=== PATIENT | female | born 1950 | race Caucasian/White ===

== ENCOUNTER → 2016-08-16 | Outpatient (CLI) | payer OTHER ==
[~2016-08-16] MED LIST: ASP81CT PO; ASP81TEC PO; ATOR40TA PO; ATOR80TA2 PO; CALC-697 PO; CALC-80 PO; CARV25TA PO; CLIN300C11 PO; CLOP75TA28; CRV25T; E400C; FENO135C PO; FENO145T; FISH1200 PO; FLAX SEED; FLAX100031 PO; FLUC200T PO; HYDR-34 PO; ISOS30TA74 PO; LISI-552; LISI1TAB PO; METFOR850T PO; METFORMIN PO; METH4TAB PO; MULT-608 PO; MULT-963 PO; MULT1TAB63; OMEG1CAP58 PO; PIOG1TAB15 PO; PIOGLITAZONE PO; RAMI10CA PO; Ranolazine PO; SIMV10TA3 PO; SITA100T PO; TRAM-42 PO; VALS320T8 PO; VITA400T7 PO; VITA800C PO; VLS80C PO; [UNRECOGNIZED DRUG - OTHER]
--- NOTE | 2016-08-16 18:55 | Diagnostic Imaging Report ---
Digital mammogram bilateral screening. This study was compared to the prior exams of 08/26/2015, 11/03/2014, 11/13/2013, and 09/04/2012. At this time, there are no current complaints. The current study was also evaluated with a Computer Aided Detection (CAD) system. FINDINGS: The fibroglandular tissue in both breasts is heterogeneously dense. This does limit the sensitivity of this exam. Overall, there does not appear to have been any significant change when compared to the prior study. No primary or secondary sign of malignancy is noted. IMPRESSION: There is no radiographic evidence for malignancy. ACR BI-RADS Category 1: Negative. Result letter will be mailed to the patient. Note: At least 10% of breast cancer is not imaged by mammography. Dictated by: Dictated on workstation # [id number]
== END ==
LOC: RAD 13:45
PROVIDERS: ATTEND Nurse Practitioner
DX: Z12.31 Encounter for screening mammogram for malignant neoplasm of breast (principal)
CPT/HCPCS: 77067

== ENCOUNTER 2016-10-25 17:57 | Emergency (ER) | payer OTHER, MEDICARE ==
[~2016-10-25] VITALS: Ht 175.3 cm; Wt 81.6 kg
--- NOTE | 2016-10-25 18:22 | ED Lower Extremity ---
General Chief Complaint: Lower Extremity Stated Complaint: L FOOT PAIN Nursing Triage Note: c/o L foot pain after kicking chair around 0830 this morning Nursing Sepsis Screen: No Definite Risk Source: patient History of Present Illness Time seen by provider: 18:00 Initial Comments C/O LEFT FOOT PAIN STATES SHE KICKED A CHAIR WITH LEFT FOOT AROUND 0830 THIS AM C/O PAIN, SWELLING, AND BRUISING TO LATERAL ASPECT OF LEFT FOOT NOW IS UNABLE TO BEAR WEIGHT ON THIS FOOT NO PARESTHESIAS OR MOTOR DEFICITS FX OF CUBOID BONE OF THIS FOOT WHEN YOUNGER--NO SURGERY PCP: DR. HANCOCK Allergies and Home Medications Allergies Coded Allergies: Penicillins (Verified Allergy, Unknown, 05/14/07) codeine (Verified Allergy, Unknown, 05/14/07) morphine (Unverified Allergy, Unknown, 10/02/13) Home Medications Aspirin 81 Mg Chew, 81 MG PO BID, (Reported) Atorvastatin Calcium 40 Mg Tablet, 40 MG PO DAILY, (Reported) Calcium Carbonate/Vitamin D3 1 Each Tablet, 1 TAB PO DAILY, (Reported) Carvedilol 25 Mg Tablet, 25 MG PO BID, (Reported) Clindamycin HCl 300 Mg Capsule, 300 MG PO QID, #40 Prescribed by: ROSANA ROSE on 03/18/162017 Clopidogrel Bisulfate 75 Mg Tablet, #90 (Reported) Fenofibrate 135 Mg Capsule.dr, 135 MG PO DAILY, (Reported) Flaxseed Oil 1,000 Mg Capsule, 1,000 MG PO DAILY, (Reported) Fluconazole 200 Mg Tablet, 200 MG PO DAILY, #10 Prescribed by: ROSANA ROSE on 03/18/162017 Isosorbide Mononitrate 30 Mg Tab.sr.24h, 30 MG PO DAILY, (Reported) Lisinopril 20 Mg Tablet, #30 (Reported) Methylprednisolone 4 Mg Tab.ds.pk, 4 MG PO UD, #1 Prescribed by: ROSANA ROSE on 03/18/162017 Multivitamin 1 Each Tablet, 1 TAB PO DAILY, (Reported) Pioglitazone Hcl/Metformin Hcl 1 Each Tablet, 1 TAB PO DAILY for 30 Days RESTART TOMORROW 10/04/13 Prescribed by: VALENTINO CHEN on 10/03/13 1015 Sitagliptin Phosphate 100 Mg Tablet, 100 MG PO DAILY, (Reported) Tramadol HCl 50 Mg Tablet, 50 MG PO Q4H, #20 Prescribed by: ROSANA ROSE on 03/18/16 2018 Tramadol HCl 50 Mg Tablet, 50 MG PO Q4H, #20 Prescribed by: ROSANA ROSE on 10/25/16 1836 Vitamin E Acid Succinate 400 Unit Tablet, 400 UNIT PO DAILY, (Reported) Constitutional: no symptoms reported Musculoskeletal: see HPI Skin: see HPI Psychiatric/Neurological: No Symptoms Reported Past Mzvxwoq-Htjspp-Nwwfmo Hx Patient Social History Alcohol Use: Denies Use Recreational Drug Use: No Smoking Status: Never a Smoker Recent Foreign Travel: No Contact w/Someone Who Travel: No Recent Infectious Disease Expo: No Immunizations Up To Date Date of Pneumonia Vaccine: Jul 08, 2007 Date of Influenza Vaccine: Mar 27, 2012 Surgeries HX Surgeries: Yes Surgeries: Adenoidectomy, Appendectomy, Cardiac, CABG, Gallbladder, Oophorectomy, Orthopedic, Tonsillectomy Respiratory Hx Respiratory Disorders: No Cardiovascular Hx Cardiac Disorders: Yes (CABG x3 (Apr 2007)) Cardiac Disorders: Coronary Artery Disease, Heart Attack, High Cholesterol, Hypertension Neurological Hx Neurological Disorders: No Reproductive System Hx Reproductive Disorders: No Sexually Transmitted Disease: No HIV/AIDS: No Female Reproductive Disorders: Ovarian Cyst BLADE CHANGER History: Menopausal Genitourinary Hx Genitourinary Disorders: No Gastrointestinal Hx Gastrointestinal Disorders: Yes (H. PYLORI) Gastrointestinal Disorders: Gastroesophageal Reflux, Hiatal Hernia, Gall Bladder Disease Musculoskeletal Hx Musculoskeletal Disorders: Yes (RIGHT KNEE) Musculoskeletal Disorders: Arthritis Endocrine Hx Endocrine Disorders: Yes Endocrine Disorders: Diabetes, Non-Insulin dep HEENT HX ENT Disorders: No Cancer Hx Cancer: Yes (skin CA on wrist 2 years ago ) Cancer: Skin Psychosocial Hx Psychiatric Problems: No Integumentary HX Skin/Integumentary Disorder: No Blood Transfusions Hx Blood Disorders: No Family Medical History Family Medial History: Chest pain 03 FATHER 09 BROTHER Congestive heart failure 03 FATHER Dementia 03 MOTHER Family history: Alzheimer's disease 03 MOTHER Family history: Cardiovascular disease 03 FATHER 09 BROTHER Family history: Diabetes mellitus 03 FATHER Family history: Hypertension 03 MOTHER Headache 03 FATHER 03 MOTHER 09 BROTHER 09 BROTHER Heart disease 03 FATHER 09 BROTHER History of - anemia 03 MOTHER Hypercholesterolemia 09 BROTHER Myocardial infarction 03 FATHER Parkinson's disease 03 MOTHER Psychotic disorder 03 MOTHER No Family History of: Abdominal aortic aneurysm Enfield's disease Alcoholism Aphasia Cancer Cancer of colon Cataract Congenital heart disease Cystic fibrosis Dysphagia Family history: Allergy Family history: Arthritis Family history: Asthma Family history: Breast disease Family history: Coronary thrombosis Family history: Gastrointestinal disease Family history: Glaucoma Family history: Osteoporosis Family history: Thyroid disorder Hearing loss Hereditary disease History of - disorder History of - respiratory disease History of drug abuse Human immunodeficiency virus (HIV) seropositivity Infertile Kidney disease Malignant neoplasm of lung Prostate cancer Seizure disorder Stroke Tuberculosis Visual impairment Physical Exam Vital Signs Vital Sign - Last 12Hours 10/25/16 18:07 Temp 98.4 Pulse 84 Resp 18 Pulse Ox 99 Capillary Refill : Less Than 3 Seconds General Appearance: WD/WN, no apparent distress Ankles: left ankle normal inspection Feet: left foot bone tenderness, left foot ecchymosis, left foot limited range of motion, left foot soft tissue tenderness, left foot swelling, left foot other (LATERAL ASPECT OF LEFT FOOT. MOTOR/SENSORY/VASCULAR INTACT) Neurologic/Tendon: normal sensation, normal motor functions, normal tendon functions Neurologic/Psychiatric: pipe buffer II-XII nml as tested, no motor/sensory deficits, alert, normal mood/affect, oriented x 3 Skin: normal color, warm/dry, ecchymosis Splinting and Joint Reduction : Immobilizers: Step Light Walker s/m/lg Progress/Results/Core Measures Results/Orders My Orders Orders - ROSANA ROSE DO [facility] (10/25/16 18:32) Vital Signs/I&O Vital Sign - Last 12Hours 10/25/16 10/25/16 18:07 18:37 Temp 98.4 98.4 Pulse 84 84 Resp 18 18 B/P (MAP) Pulse Ox 99 99 Progress Note : Progress Note PT HAS CRUTCHES AT HOME Diagnostic Imaging Comments XRAYS LEFT FOOT--NO ACUTE BONY INJURY--PER RADIOLOGIST REPORT @ 1926 Departure Impression Impression: Primary Impression: Contusion of left foot, initial encounter Disposition: HOME, SELF-CARE Condition: Stable Departure-Patient Inst. Referrals: MEENU HANCOCK DO (PCP) Primary Care Physician Patient Instructions: Contusion (DC), Going Up and Down Curbs or Stairs With a Walker or Crutches Add. Discharge Instructions: ICE, ELEVATE MUCH POSSIBLE WEAR BOOT AND USE YOUR CRUTCHES NEEDED FOR COMFORT FOLLOW UP WITH YOUR DR IN 1 WEEK IF NO BETTER IBUPROFEN OR ALEVE, AND TYLENOL NEEDED FOR PAIN All discharge instructions reviewed with patient and/or family. Voiced understanding. Scripts Tramadol HCl (Ultram) 50 Mg Tablet 50 MG PO Q4H, #20 TAB Prov: ROSANA ROSE DO 10/25/16 Images Extremities-Lower 1 - Moderate, Swelling, Tenderness ROSANA ROSE DO October 25, 2016 18:22
--- NOTE | 2016-10-25 18:26 | Diagnostic Imaging Report ---
INDICATION: Caught foot on a rocker. Pain.. TECHNIQUE: 3 views of the left foot. CORRELATION STUDY: None FINDINGS: The osseous structures of the foot are intact. Joint space is maintained. Alignment anatomic. Soft tissues appearing unremarkable. IMPRESSION: 1. Negative for acute findings of the foot. Dictated by: Dictated on workstation # [id number]
[2016-10-25] MEDS ORDERED: TRAM-42 PO (18:36)
[2016-10-25 18:37] VITALS: BP 158/62
== END 2016-10-25 18:37 | disposition home or self-care (01) ==
LOC: EDUNIT# 17:57 → ER 17:59
DX: S90.32XA Contusion of left foot, initial encounter (principal); W22.8XXA Striking against or struck by other objects, initial encounter; Y99.8 Other external cause status
CPT/HCPCS: 73630; 99285

== ENCOUNTER → 2017-06-12 | Outpatient (CLI) | payer MEDICARE, OTHER ==
--- NOTE | 2017-06-12 14:43 | Diagnostic Imaging Report ---
PROCEDURE: US Carotid Duplex Bilateral. TECHNIQUE: Multiple real-time grayscale images were obtained over the carotid arteries in various projections bilaterally. Additional duplex Doppler and color Doppler images were also obtained. INDICATION: Carotid artery disease. Hypertension. FINDINGS: Grayscale images demonstrate atherosclerotic plaque at the carotid bifurcation seen bilaterally. There is a color Doppler demonstrating patency of the common carotid, internal carotid and external carotid arteries on both sides. Antegrade flow in the vertebral arteries is seen bilaterally. The peak systolic velocities in the right ICA are 108, 87 and 92 cm/s. ICA velocities on the left are 61, 92 and 90 cm/s. ICA/CCA ratios are up to 1.1 on the right side and 1.0 on the left. IMPRESSION: There is atherosclerotic plaque seen with velocities in the carotid arteries in normal range. Estimated underlying stenosis is in the range of 0-40% bilaterally. Dictated by: Dictated on workstation # [id number]
== END ==
LOC: RAD 12:41
PROVIDERS: ATTEND Nurse Practitioner Family
DX: I65.23 Occlusion and stenosis of bilateral carotid arteries (principal); I25.10 Atherosclerotic heart disease of native coronary artery without angina pectoris; E78.4 Other hyperlipidemia; I10 Essential (primary) hypertension
CPT/HCPCS: 93880

== ENCOUNTER → 2017-08-27 | Outpatient (CLI) | payer MEDICARE, OTHER ==
--- NOTE | 2017-08-27 12:53 | Diagnostic Imaging Report ---
INDICATION: Routine screening. The current study was also evaluated with a Computer Aided Detection (CAD) system. Comparison is made with prior studies from 08/16/2016 and 08/26/2015. FINDINGS: Moderate parenchymal density and heterogeneity is identified. The parenchymal pattern is stable. No mass or malignant-appearing microcalcifications are seen. There are benign calcifications bilaterally. The axillae are unremarkable. IMPRESSION: No mammographic features suspicious for malignancy are identified. ACR BI-RADS Category 2: Benign findings. Result letter will be mailed to the patient. Note: At least 10% of breast cancer is not imaged by mammography. Dictated by: Dictated on workstation # [id number]
== END ==
LOC: RAD 11:55
PROVIDERS: ATTEND Family Medicine
DX: Z12.31 Encounter for screening mammogram for malignant neoplasm of breast (principal)
CPT/HCPCS: 77067

== ENCOUNTER → 2017-12-06 | Outpatient (CLI) | payer MEDICARE, OTHER ==
--- NOTE | 2017-12-06 14:20 | Diagnostic Imaging Report ---
PROCEDURE: MRI right joint lower extremity without contrast. TECHNIQUE: Multiplanar, multisequence non contrast-enhanced MRI of the right lower extremity was accomplished. INDICATION: Chronic right knee pain. COMPARISON: MRI from 06/14/2010. FINDINGS: No acute fracture is seen in the right knee. There is bone marrow edema at the medial femoral condyle and medial tibial plateau. There are marked osteophytes at the patellofemoral compartment, including fragmented superior marginal osteophytes and multiple button osteophytes. Extensive osteophytes are also seen in the medial and lateral compartments as well. There is a moderate right knee joint effusion. There is a large 1.3 cm ossific fragment superior to the patella which may represent a joint body or fragmented osteophyte. There is also a large joint body posterior to the posterior cruciate ligament which measures up to 1.3 cm in diameter. There is thinning, surface irregularity, and heterogeneity of the patellofemoral articular cartilage without large full thickness defect seen. The articular cartilage in the medial compartment is nearly completely absent. The articular cartilage in the lateral compartment demonstrates thinning, heterogeneity, and surface irregularity. There is extensive maceration and complex tearing throughout the medial meniscus which is extruded from the joint. The lateral meniscus demonstrates complex tearing at the posterior horn near the root, and possible oblique tear at the anterior horn. The anterior and posterior cruciate ligaments appear intact, although with mucoid degeneration. The medial collateral ligament is bowed, with low-grade partial-thickness tearing at the femoral attachment. The lateral collateral ligamentous complex appears intact. The extensor mechanism is intact. Trace fluid is seen in Finney's cyst. There is mild edema in the posterior musculature. IMPRESSION: 1. Marked tricompartmental osteoarthritis and cartilage loss in the right knee, most severe in the medial compartment. 2. Extensive complex tearing and maceration of the medial meniscus. Complex tears of the lateral meniscus as well. 3. Low-grade partial thickness tearing at the femoral attachment of the medial collateral ligament. 4. Moderate right knee joint effusion with large joint bodies. Dictated by: Dictated on workstation # [id number]
== END ==
LOC: RAD 13:08
PROVIDERS: ATTEND Family Medicine
DX: M17.11 Unilateral primary osteoarthritis, right knee (principal); S83.241A Other tear of medial meniscus, current injury, right knee, initial encounter; S83.281A Other tear of lateral meniscus, current injury, right knee, initial encounter; S83.91XA Sprain of unspecified site of right knee, initial encounter
CPT/HCPCS: 73721

== ENCOUNTER → 2018-02-08 | Outpatient (CLI) | payer MEDICARE, OTHER ==
[~2018-02-08] VITALS: Ht 175.3 cm; Wt 83.5 kg
[~2018-02-08] MED LIST changes: +ASPI-999 PO; +ATOR40TA70 PO; +CALC-654 PO; +CARV6.252 PO; +CLOP75TA69 PO; +FAMO20TA3 PO; +FENO134C PO; +FISH12002 PO; +ISOS30TA3 PO; -LISI-552; +LISI-552 PO; +MULT-35 PO; +PIOG1TAB9 PO; +SITA25TA5 PO
== END | disposition home or self-care (01) ==
LOC: PREOP 02-04 05:37
PROVIDERS: ATTEND Surgery
DX: Z01.818 Encounter for other preprocedural examination (principal)

== ENCOUNTER → 2018-04-09 | Outpatient (CLI) | payer MEDICARE, OTHER ==
[~2018-04-09] VITALS: Ht 175.3 cm; Wt 83.0 kg
[~2018-04-09] MED LIST changes: +CATHETER FLUSH 10 ML SYR IV PRN; +REGADENOSON 0.4 MG/5 ML SYR (LEXISCAN) IV ONE
[2018-04-09 09:27] VITALS: BP 225/111
[2018-04-09 09:32] VITALS: BP 197/107
--- NOTE | 2018-04-09 19:12 | STRESS TEST ---
DATE OF SERVICE: 04/09/2018 TITLE OF THE EXAM: Resting and post regadenoson technetium-99m Tetrofosmin SPECT CT imaging. ORDERING PHYSICIAN: MESERET Zhao. PRIMARY PHYSICIAN: Tonya Long DO. OTHER PHYSICIAN: Nahun Gaines MD, MA, FACP, FACC. CLINICAL DIAGNOSES: Coronary artery disease. Baseline images were carried out after injection of 10.43 mCi technetium-99m Tetrofosmin. This was followed by 0.4 mg regadenoson and 28.5 mCi of technetium-99m Tetrofosmin for stress imaging. The electrocardiogram showed sinus rhythm with incomplete right bundle branch block and nonspecific ST abnormality. The ST segment abnormality worsened somewhat with the regadenoson infusion and then gradually returned towards baseline. The patient reported nervousness and flushing following regadenoson infusion, which resolved in a few minutes. Review of images at rest and following stress indicates a small basal inferior perfusion defect which appears transient. Gated images show a mild posterobasal hypokinesis. Left ventricular ejection fraction is calculated to be 62%. Left ventricular end diastolic volume is 61 mL. TID is absent (1.04). CONCLUSIONS: 1. The study is indicative of a small amount of some basal inferior ischemia. 2. Mild basal inferior hypokinesis. 3. Well preserved global left ventricular systolic function with ejection fraction approximately 62%. Job ID: [id number] DocumentID: [id number] Dictated Date: 04/09/2018 12:46:40 Contact Worker Date: 04/09/2018 16:46:54 Dictated By: NAHUN GAINES MD, BRITTA, FACP, FACC, [facility]
== END ==
LOC: CARD 07:27
PROVIDERS: ATTEND Nurse Practitioner Family
DX: I25.10 Atherosclerotic heart disease of native coronary artery without angina pectoris (principal); I10 Essential (primary) hypertension; E78.5 Hyperlipidemia, unspecified
CPT/HCPCS: 78452; 93017

== ENCOUNTER → 2018-09-30 | Outpatient (CLI) | payer MEDICARE, OTHER ==
[~2018-09-30] MED LIST changes: -CATHETER FLUSH 10 ML SYR IV PRN; -REGADENOSON 0.4 MG/5 ML SYR (LEXISCAN) IV ONE
--- NOTE | 2018-10-01 11:32 | Diagnostic Imaging Report ---
EXAMINATION: Digital mammogram bilateral screening with 3D tomosynthesis and cad. This study was compared to prior exams of 08/27/2017, 08/16/2016 and 08/26/2015. At this time there are no current complaints. The current study was also evaluated with a Computer Aided Detection (CAD) system. FINDINGS: The fibroglandular tissue in both breasts is heterogeneously dense. This does limit the sensitivity of this exam. Overall, there does not appear to have been any significant change when compared to the prior study. No primary or secondary sign of malignancy is noted. IMPRESSION: There is no radiographic evidence for malignancy. ACR BI-RADS Category 1: Negative. Result letter will be mailed to the patient. Note: At least 10% of breast cancer is not imaged by mammography. Dictated by: Dictated on workstation # [id number]
== END ==
LOC: RAD 10:21
PROVIDERS: ATTEND Family Medicine
DX: Z12.31 Encounter for screening mammogram for malignant neoplasm of breast (principal)
CPT/HCPCS: 77067

== ENCOUNTER → 2019-06-09 | Outpatient (CLI) | payer MEDICARE, OTHER | LOC: CARD 08:37 | PROVIDERS: ATTEND Internal Medicine Cardiovascular Disease | DX: I34.0 Nonrheumatic mitral (valve) insufficiency (principal); I25.10 Atherosclerotic heart disease of native coronary artery without angina pectoris; E11.9 Type 2 diabetes mellitus without complications; I10 Essential (primary) hypertension; E78.5 Hyperlipidemia, unspecified; I65.23 Occlusion and stenosis of bilateral carotid arteries | CPT/HCPCS: 93306 ==

== ENCOUNTER → 2019-11-03 | Outpatient (CLI) | payer MEDICARE, OTHER ==
--- NOTE | 2019-11-03 16:23 | Diagnostic Imaging Report ---
INDICATION: Routine screening. COMPARISON: 09/30/2018 and 08/27/2017. TECHNIQUE: 2D and 3D bilateral screening mammography was performed with CAD. FINDINGS: Both breasts remain heterogeneously dense, limiting the sensitivity of mammography. No mass or malignant appearing microcalcifications are seen. There are benign calcifications bilaterally. The axillae are unremarkable. IMPRESSION: No mammographic features suspicious for malignancy are identified. ACR BI-RADS Category 2: Benign findings. Result letter will be mailed to the patient. Note: At least 10% of breast cancer is not imaged by mammography. Dictated by: Dictated on workstation # [id number]
== END ==
LOC: RAD 13:02
PROVIDERS: ATTEND Family Medicine
DX: Z12.31 Encounter for screening mammogram for malignant neoplasm of breast (principal)
CPT/HCPCS: 77063; 77067

== ENCOUNTER → 2019-12-08 | Outpatient (CLI) | payer MEDICARE, OTHER ==
[~2019-12-08] MED LIST changes: +CATHETER FLUSH 10 ML SYR IV PRN; +HOLD METFORMIN - RECEIVED CONTRAST 20 ML VIAL IV SCH; +IOHEXOL 350 MG/ML 100 ML (OMNIPAQUE 350) VIAL IV ONE; +NS 100 ML (IVPB) BAG IV ONE
--- NOTE | 2019-12-08 08:38 | Diagnostic Imaging Report ---
PROCEDURE: CT angiography of the head and CT angiography of the neck with and without contrast. TECHNIQUE: Contiguous noncontrast images were obtained from the skull base through the vertex. After intravenous contrast administration, helical CT angiography of the neck was performed. Source data was reformatted into 3D MIP projections. Delayed post contrast acquisition was also obtained. Auto Exposure Controls were utilized during the CT exam to meet ALARA standards for radiation dose reduction. INDICATION: Vertigo, nausea. COMPARISON: No previous for direct comparison. The patient had a carotid Doppler performed on 06/12/2017. FINDINGS: CT HEAD: The precontrast and delayed post contrast enhanced head CT reveals no hemorrhage, hydrocephalus, edema, mass, mass effect, or findings of an elevation of the intracerebral pressures. There is no abnormal parenchymal or meningeal enhancement following contrast. CT NECK: The aortic arch and branching pattern of the great vessels appear unremarkable. The cervical vertebral arteries are patent and codominant. The bilateral common carotids are widely patent. There are calcified plaques at the carotid bulbs bilaterally which do not result in significant luminal narrowing. There is calcified plaque in the proximal left cervical internal carotid with a 20% or less stenosis and not hemodynamically significant. CTA HEAD: There are intracranial carotid calcified plaques eccentrically and non-stenosing bilaterally. The intradural vertebral arteries and the basilar are widely patent. The bilateral DEATH CLAIM CLERK segments are widely patent. The A1 segments, ACOM, and the paired anterior cerebral arteries are widely patent. The bilateral middle cerebral arterial segments and primary branches are widely patent. No filling defect. IMPRESSION: There are mild cervical intracranial calcified atherosclerotic plaques which do not result in a hemodynamically significant stenosis. Widely patent cervical and intracranial vertebral basilar system. Dictated by: Dictated on workstation # [id number]
== END ==
LOC: RAD 07:18
PROVIDERS: ATTEND Family Medicine
DX: I65.29 Occlusion and stenosis of unspecified carotid artery (principal); R42 Dizziness and giddiness
CPT/HCPCS: 70496; 70498

== ENCOUNTER → 2020-05-13 | Outpatient (CLI) | payer MEDICARE, OTHER ==
[~2020-05-13] MED LIST changes: -CATHETER FLUSH 10 ML SYR IV PRN; -HOLD METFORMIN - RECEIVED CONTRAST 20 ML VIAL IV SCH; -IOHEXOL 350 MG/ML 100 ML (OMNIPAQUE 350) VIAL IV ONE; -NS 100 ML (IVPB) BAG IV ONE
== END ==
LOC: CARD 09:30
PROVIDERS: ATTEND Nurse Practitioner Family
DX: I25.10 Atherosclerotic heart disease of native coronary artery without angina pectoris (principal); I08.0 Rheumatic disorders of both mitral and aortic valves
CPT/HCPCS: 93306

== ENCOUNTER → 2020-05-14 | Outpatient (CLI) | payer MEDICARE, OTHER ==
[~2020-05-14] MED LIST changes: +REGADENOSON 0.4 MG/5 ML SYR (LEXISCAN) IV ONE
[2020-05-14] MEDS: CATHETER FLUSH 10 ML SYR IV PRN ×2 (07:24→09:12)
[2020-05-14 09:11] VITALS: BP 188/98
--- NOTE | 2020-05-14 16:19 | STRESS TEST ---
DATE OF SERVICE: 05/14/2020 RESTING AND POST REGADENOSON TECHNETIUM-99M TETROFOSMIN SPECT CT IMAGING ORDERING PHYSICIAN: Marla Perez APRN PRIMARY PHYSICIAN: Dr. Long. OTHER PHYSICIAN: Dr. Adler. CLINICAL DIAGNOSES: Coronary artery disease. Baseline images were carried out after injection of 10.95 mCi of technetium-99m Tetrofosmin. This was followed by 0.4 mg regadenoson and 29.2 mCi of technetium-99m Tetrofosmin for stress imaging. The electrocardiogram showed sinus rhythm at baseline. There was nonspecific ST abnormality at baseline, which became somewhat more pronounced with the regadenoson infusion and then returned towards baseline. The patient tolerated the procedure well and did not report any significant symptoms. Review of images at rest and following stress shows considerable gut uptake in the gut, especially during stress images. This makes the study difficult to interpret. The overall impression is that there is probably a small amount of basal inferior ischemia. Gated images show normal global left ventricular systolic function with normal regional wall motion. Left ventricular ejection fraction is calculated to be 58%. Left ventricular end diastolic volume is 60 mL. TID is absent (1.01). CONCLUSIONS: 1. This study is suggestive of a small amount of basal inferior ischemia. 2. Normal regional wall motion. 3. Normal global left ventricular systolic function with ejection fraction of 58%. Job ID: [id number] DocumentID: [id number] Dictated Date: 05/14/2020 12:20:06 Manager Of Business Operations Date: 05/14/2020 16:18:42 Dictated By: MANAN ADLER MD, MA, FACP, FACC, MTDD
== END ==
LOC: CARD 07:30
PROVIDERS: ATTEND Nurse Practitioner Family
DX: I25.10 Atherosclerotic heart disease of native coronary artery without angina pectoris (principal)
CPT/HCPCS: 78452; 93017; A9502

== ENCOUNTER 2020-05-25 08:00 | Day surgery (SDC) | payer MEDICARE, OTHER ==
[~2020-05-25] VITALS: Ht 173 cm; Wt 84.0 kg
[2020-05-25 07:27] VITALS: BP 206/105
[~2020-05-25 08:00] MED LIST changes: +LIDOCAINE 1% INJ 20 ML 20 ML VIAL INJ ONE; +LIDOCAINE 1% INJ 20 ML 20 ML VIAL ONE; -REGADENOSON 0.4 MG/5 ML SYR (LEXISCAN) IV ONE
--- NOTE | 2020-05-25 11:05 | OPERATIVE REPORT ---
DATE OF SERVICE: 05/25/2020 INDICATIONS: The patient is a 69-year-old lady, who has been experiencing palpitations that are infrequent, but considerably symptomatic. Implantable loop recorder implantation was carried out after having obtained an informed consent. DESCRIPTION OF PROCEDURE: [facility]. The left prepectoral area was prepared and draped in the usual sterile fashion. Lidocaine 1% was used for local anesthesia. The tools provided with the Accupal Reveal LINQ device were used to make a subcutaneous pocket anterior to the left fourth intercostal space into which the device was placed, and the wound edges were closed using Dermabond and Steri-Strips. The serial number of the device is [id number]. She tolerated the procedure well. Job ID: [id number] DocumentID: [id number] Dictated Date: 05/25/2020 08:52:54 Neck Band Maker Date: 05/25/2020 11:05:16 Dictated By: MANAN ADLER MD, MA, FACP, FACC, MTDD
== END 2020-05-25 09:13 | disposition home or self-care (01) ==
LOC: CATH 08:00
PROVIDERS: ATTEND Internal Medicine Cardiovascular Disease
DX: R00.2 Palpitations (principal); I10 Essential (primary) hypertension; E11.9 Type 2 diabetes mellitus without complications; M17.10 Unilateral primary osteoarthritis, unspecified knee; I95.1 Orthostatic hypotension; D64.9 Anemia, unspecified; I65.23 Occlusion and stenosis of bilateral carotid arteries; Z95.1 Presence of aortocoronary bypass graft; E78.2 Mixed hyperlipidemia; I34.0 Nonrheumatic mitral (valve) insufficiency; Z79.82 Long term (current) use of aspirin; Z79.899 Other long term (current) drug therapy; Z88.0 Allergy status to penicillin; Z88.5 Allergy status to narcotic agent; Z83.3 Family history of diabetes mellitus
CPT/HCPCS: 33285; C1764

== ENCOUNTER 2020-07-02 12:43 | Outpatient (CLI) | payer MEDICARE, OTHER ==
[~2020-07-02 12:43] MED LIST changes: -CLIN300C11 PO; +CLIN300C12 PO; -LIDOCAINE 1% INJ 20 ML 20 ML VIAL INJ ONE; -LIDOCAINE 1% INJ 20 ML 20 ML VIAL ONE
== END 2020-07-02 13:31 | disposition home or self-care (01) ==
LOC: SLEEP 12:43
PROVIDERS: ATTEND Otolaryngology Otolaryngology/Facial Plastic Surgery
DX: G47.33 Obstructive sleep apnea (adult) (pediatric) (principal)

== ENCOUNTER → 2020-11-03 | Outpatient (CLI) | payer MEDICARE, OTHER ==
[~2020-11-03] MED LIST changes: -ISOS30TA3 PO; +ISOS30TA82 PO; -LISI-552 PO; +LISI20TA26 PO
--- NOTE | 2020-11-04 09:06 | Diagnostic Imaging Report ---
INDICATION: Routine screening. Comparison is made with prior mammogram 11/03/2019 and 09/30/2018. 2-D and 3-D bilateral screening mammography was performed with CAD. Both breasts are heterogeneously dense, limiting the sensitivity of mammography. The parenchymal pattern is stable. No mass or malignant appearing microcalcifications are seen. There are occasional benign parenchymal and vascular calcifications. Cardiac monitoring device overlies the medial left breast. Axillae are unremarkable. IMPRESSION: BI-RADS Category 2 No mammographic features suspicious for malignancy are identified. ACR BI-RADS Category 2: Benign findings. Result letter will be mailed to the patient. Note: At least 10% of breast cancer is not imaged by mammography. Dictated by: Dictated on workstation # [id number]
== END ==
LOC: RAD 10:27
PROVIDERS: ATTEND Family Medicine
DX: Z12.31 Encounter for screening mammogram for malignant neoplasm of breast (principal)
CPT/HCPCS: 77063; 77067

== ENCOUNTER 2021-07-20 02:39 | Observation (INO) | payer MEDICARE, OTHER ==
[2021-07-20] VITALS (9 sets, daily range): BP systolic 165–196; BP diastolic 72–88
[~2021-07-20] VITALS: Ht 172.7 cm; Wt 81.2 kg
[~2021-07-20 02:39] MED LIST changes: +CLIN-144 PO; -CLIN300C12 PO
--- NOTE | 2021-07-20 03:23 | ED Chest Pain ---
General Chief Complaint: COVID19 Suspect/Confirmed Stated Complaint: LEFT ELBOW PAIN,CP,COVID+ Nursing Triage Note: TO ED VIA POV TO ROOM 9 NEGATIVE PRESSURE WITH C/O LEFT CP AND LEFT ELBOW PAIN THAT STARTED AT 2100. TOOK TYLENOL AND ISOBRIDE WITHOUT RELIEF. SX COVID OF SORE THROAT, COUGHING, AND HEADACHE STARTED SUNDAY AND TESTED POSITIVE SUNDAY AT [facility]. HX: CABG APR 2007. PCP DR LOGN AND DR. GAINES IS HEART DOCTOR. Source: patient Exam Limitations: no limitations History of Present Illness Date Seen by Provider: Jul 20, 2021 Time Seen by Provider: 03:04 Initial Comments Patient to the ER by private conveyance with chief complaint that she started having some left-sided chest pain going down to her left elbow at 2099 last night. She took Tylenol and her Imdur as well as her daily dose of aspirin and does not feel like that made any difference in her pain. She rates it about a 4 out of 10 now. She has a history of CABG 2006 and is followed by Dr. Gaines. She has a loop recorder in place. She also has a history of atrial fibrillation on Eliquis, diabetes, hypertension, hyperlipidemia. She started having symptoms of Covid on Sunday 4 days ago and had a positive test on Sunday, 2 days ago. Never a smoker. She has had 3 Moderna COVID-19 vaccines as well as an influenza vaccine. No history of blood clots. She states she routinely takes her blood pressure medicine but occasionally has spikes in blood pressure regardless. Blood pressure managed by Dr. Long. Echocardiogram by Dr. Gaines April 2020 demonstrating 55 to 60% EF. Allergies and Home Medications Allergies Coded Allergies: Penicillins (Verified Allergy, Unknown, 02/08/18) codeine (Verified Allergy, Unknown, 02/08/18) morphine (Unverified Allergy, Unknown, 02/08/18) Patient Home Medication List Home Medication List Reviewed: Yes Acetaminophen (Tylenol Extra Strength) 500 Mg Tablet, 500-1,000 MG PO Q8H PRN for PAIN-MILD (1-4), (Reported) Entered as Reported by: YARA SUAREZ on 07/20/21 5923 Last Action: Reviewed Albuterol Sulfate (Proair Hfa) 1 Puff Puff, 2 PUFF IH Q4H PRN for SHORTNESS OF BREATH, (Reported) Entered as Reported by: YARA SUAREZ on 07/20/21944 Last Action: Reviewed Apixaban (Eliquis) 5 Mg Tablet, 5 MG PO BID, (Reported) Entered as Reported by: YARA SUAREZ on 07/20/21945 Last Action: Reviewed Aspirin (Aspirin EC) 81 Mg Tablet.dr, 81 MG PO HS, (Reported) Entered as Reported by: YARA SUAREZ on 07/20/21944 Last Action: Reviewed Atorvastatin Calcium (Atorvastatin Calcium) 40 Mg Tablet, 40 MG PO HS, (Reported) Entered as Reported by: CHELSIE PERRIN on 02/08/181106 Last Action: Reviewed Carvedilol (Carvedilol) 25 Mg Tablet, 25 MG PO BID, (Reported) Entered as Reported by: YARA SUAREZ on 07/20/21944 Last Action: Reviewed Cetirizine HCl (Cetirizine HCl) 10 Mg Tablet, 10 MG PO DAILY PRN for ALLERGY SYMPTOMS, (Reported) Entered as Reported by: YARA SUAREZ on 07/20/21944 Last Action: Reviewed Dexamethasone (Dexamethasone) 2 Mg Tablet, 6 MG PO DAILY, (Reported) Entered as Reported by: YARA SUAREZ on 07/20/21944 Last Action: Reviewed Diltiazem HCl (Diltiazem 24Hr ER) 120 Mg Cap.er.24h, 120 MG PO DAILY, (Reported) Entered as Reported by: YARA SUAREZ on 07/20/21944 Last Action: Reviewed Famotidine (Acid Commercial Correspondent (FAMOTIDINE)) 10 Mg Tablet, 10 MG PO HS, (Reported) Entered as Reported by: YARA SUAREZ on 07/20/21944 Last Action: Reviewed Fenofibric Acid (Choline) (Fenofibric Acid) 135 Mg Capsule.dr, 135 MG PO HS, (Reported) Entered as Reported by: YARA SUAREZ on 07/20/21944 Last Action: Reviewed Fish Oil/Borage/Flax/Om3,6,9#1 ([place] 3-6-9 1,200 mg Softgel) 1,200 Mg Capsule, 1 EA PO BID, (Reported) Entered as Reported by: CHELSIE PERRIN on 02/08/181106 Last Action: Reviewed Glipizide (Glipizide ER) 5 Mg Tab.er.24, 5 MG PO DAILY, (Reported) Entered as Reported by: YARA SUAREZ on 07/20/21944 Last Action: Reviewed Isosorbide Mononitrate (Isosorbide Mononitrate ER) 30 Mg Tab.er.24h, 30 MG PO DAILY, (Reported) Entered as Reported by: CHELSIE EPRRIN on 02/08/181106 Last Action: Reviewed Losartan Potassium (Losartan Potassium) 100 Mg Tablet, 100 MG PO HS, (Reported) Entered as Reported by: YARA SUAREZ on 07/20/21944 Last Action: Reviewed Metformin HCl (Metformin HCl) 1,000 Mg Tablet, 1,000 MG PO BID, (Reported) Entered as Reported by: YARA SUAREZ on 07/20/21944 Last Action: Reviewed Multivitamin (Multivitamin) 1 Each Tablet, 1 EACH PO DAILY, (Reported) Entered as Reported by: YARA SUAREZ on 07/20/21944 Last Action: Reviewed Discontinued Medications Calcium Carbonate/Vitamin D3 (Calcium 500 + D Tablet) 1 Each Tablet, 1 EACH PO DAILY, (Reported) Discontinued Reason: No Longer Taking Entered as Reported by: CHELSIE PERRIN on 02/08/181106 Last Action: Discontinued Carvedilol (Carvedilol) 6.25 Mg Tablet, 6.25 MG PO BID, (Reported) Discontinued Reason: No Longer Taking Entered as Reported by: CHELSIE PERRIN on 02/08/181106 Last Action: Discontinued Clopidogrel Bisulfate (Plavix) 75 Mg Tablet, 75 MG PO DAILY, (Reported) Discontinued Reason: No Longer Taking Entered as Reported by: CHELSIE PERRIN on 02/08/181106 Last Action: Discontinued Famotidine (Acid Commercial Correspondent (FAMOTIDINE)) 20 Mg Tablet, 20 MG PO HS, (Reported) Discontinued Reason: Prescription changed Entered as Reported by: CHELSIE PERRIN on 02/08/181106 Fenofibrate,Micronized (Fenofibrate) 134 Mg Capsule, 134 MG PO HS, (Reported) Discontinued Reason: No Longer Taking Entered as Reported by: CHELSIE PERRIN on 02/08/181106 Last Action: Discontinued Lisinopril (Lisinopril) 20 Mg Tablet, 20 MG PO DAILY, (Reported) Discontinued Reason: No Longer Taking Entered as Reported by: CATERINA KAUR on 03/18/161857 Last Action: Discontinued Multivitamin (Daily Multiple Vitamin) 1 Each Tablet, 1 EACH PO DAILY, (Reported) Discontinued Reason: No Longer Taking Entered as Reported by: CHELSIE PERRIN on 02/08/181106 Last Action: Discontinued Pioglitazone HCl/Metformin HCl (Actoplus Met 15 mg-850 mg Tab) 1 Each Tablet, 1 EACH PO DAILY, (Reported) Discontinued Reason: No Longer Taking Entered as Reported by: CHELSIE PERRIN on 02/08/181106 Last Action: Discontinued Sitagliptin Phosphate (Januvia) 25 Mg Tablet, 25 MG PO HS, (Reported) Discontinued Reason: No Longer Taking Entered as Reported by: CHELSIE PERRIN on 02/08/181106 Last Action: Discontinued Review of Systems Review of Systems Constitutional: see HPI, chills, fever, malaise EENTM: No Blurred Vision, No Double Vision Respiratory: Cough; Denies Shortness of Air Cardiovascular: Chest Pain; Denies Edema Gastrointestinal: Denies Abdomen Distended, Denies Abdominal Pain Genitourinary: Denies Burning, Denies Discharge, Denies Drainage, Denies Frequency Musculoskeletal: No back pain, No joint pain Skin: No pruritus, No rash Psychiatric/Neurological: Denies Headache, Denies Numbness, Denies Paresthesia All Other Systems Reviewed Negative Unless Noted: Yes Past Zvwpyll-Zmipad-Eyevta Hx Patient Social History Tobacco Use?: No Use of E-Cig and/or Vaping dev: No Substance use?: No Alcohol Use?: Yes Alcohol type: Beer Alcohol Frequency: Rarely Immunizations Up To Date Tetanus Booster (TDap): Unknown Seasonal Allergies Seasonal Allergies: Yes Past Medical History Surgeries: Yes Adenoidectomy, Appendectomy, Cardiac, CABG, Gallbladder, Oophorectomy, Orthopedic, Tonsillectomy Respiratory: No Currently Using CPAP: No Currently Using BIPAP: No Cardiac: Yes Coronary Artery Disease, Heart Attack, High Cholesterol, Hypertension Neurological: No Reproductive Disorders: No Female Reproductive Disorders: Denies, Ovarian Cyst [employer] History: Menopausal Sexually Transmitted Disease: No HIV/AIDS: No Gastrointestinal: Yes Gastroesophageal Reflux, Hiatal Hernia Musculoskeletal: Yes Arthritis Endocrine: Yes Diabetes, Non-Insulin dep HEENT: No Loss of Vision: Bilateral Cancer: Yes Skin Did You Recieve Any Treatments: Yes What Type of Treatment Did You: Surgical Intervention Psychosocial: No Blood Disorders: Yes (HX LOW WBC, ANEMIA) Adverse Reaction/Blood Tranf: No (N/A) Family Medical History Chest pain 03 FATHER 09 BROTHER Congestive heart failure 03 FATHER Dementia 03 MOTHER Family history: Alzheimer's disease 03 MOTHER Family history: Cardiovascular disease 03 FATHER 09 BROTHER Family history: Diabetes mellitus 03 FATHER Family history: Hypertension 03 MOTHER Headache 03 FATHER 03 MOTHER 09 BROTHER 09 BROTHER Heart disease 03 FATHER 09 BROTHER History of - anemia 03 MOTHER Hypercholesterolemia 09 BROTHER Myocardial infarction 03 FATHER Parkinson's disease 03 MOTHER Psychotic disorder 03 MOTHER No Family History of: Abdominal aortic aneurysm [place]'s disease Alcoholism Aphasia Cancer Cancer of colon Cataract Congenital heart disease Cystic fibrosis Dysphagia Family history: Allergy Family history: Arthritis Family history: Asthma Family history: Breast disease Family history: Coronary thrombosis Family history: Gastrointestinal disease Family history: Glaucoma Family history: Osteoporosis Family history: Thyroid disorder Hearing loss Hereditary disease History of - disorder History of - respiratory disease History of drug abuse Human immunodeficiency virus (HIV) seropositivity Infertile Kidney disease Malignant neoplasm of lung Prostate cancer Seizure disorder Stroke Tuberculosis Visual impairment Physical Exam Vital Signs Vital Signs - First Documented 07/20/21 02:58 Temp 37.1 Pulse 101 Resp 18 B/P (MAP) 243/138 (173) Pulse Ox 97 O2 Delivery Room Air Capillary Refill : Less Than 3 Seconds Height, Weight, BMI Height: 5'9.00" Weight: 183lbs. 0.0oz. 83.313695jk; 28.00 BMI Method:Stated General Appearance: No Apparent Distress, WD/WN HEENT: PERRL/EOMI, TMs Normal, Normal ENT Inspection, Pharynx Normal, Moist Mucous Membranes Neck: Full Range of Motion, Normal Inspection, Non Tender Respiratory: Chest Non Tender, Lungs Clear, Normal Breath Sounds, No Accessory Muscle Use, No Respiratory Distress Cardiovascular: Regular Rate, Rhythm, No Edema, Normal Peripheral Pulses Gastrointestinal: Normal Bowel Sounds, Non Tender, Soft Genital/Rectal: Normal Genital Exam, Normal Rectal Exam Extremity: Normal Capillary Refill, Normal Inspection, Non Tender, No Pedal Edema Neurologic/Psychiatric: Alert, Oriented x3, No Motor/Sensory Deficits, Normal Mood/Affect Skin: Normal Color, Warm/Dry Progress/Results/Core Measures Results/Orders Lab Results Laboratory Tests Test 07/20/21 03:18 Range/Units White Blood Count 6.2 4.3-11.0 10^3/uL Red Blood Count 4.34 3.80-5.11 10^6/uL Hemoglobin 12.3 11.5-16.0 g/dL Hematocrit 37 35-52 % Mean Corpuscular Volume 85 80-99 fL Mean Corpuscular Hemoglobin 28 25-34 pg Mean Corpuscular Hemoglobin Concent 34 32-36 g/dL Red Cell Distribution Width 13.9 10.0-14.5 % Platelet Count 163 130-400 10^3/uL Mean Platelet Volume 10.7 9.0-12.2 fL Immature Granulocyte % (Auto) 1 % Neutrophils (%) (Auto) 87 H 42-75 % Lymphocytes (%) (Auto) 10 L 12-44 % Monocytes (%) (Auto) 4 0-12 % Eosinophils (%) (Auto) 0 0-10 % Basophils (%) (Auto) 0 0-10 % Neutrophils # (Auto) 5.4 1.8-7.8 10^3/uL Lymphocytes # (Auto) 0.6 L 1.0-4.0 10^3/uL Monocytes # (Auto) 0.2 0.0-1.0 10^3/uL Eosinophils # (Auto) 0.0 0.0-0.3 10^3/uL Basophils # (Auto) 0.0 0.0-0.1 10^3/uL Immature Granulocyte # (Auto) 0.0 0.0-0.1 10^3/uL Prothrombin Time 14.2 12.2-14.7 SEC INR Comment 1.1 0.8-1.4 Activated Partial Thromboplast Time 35 24-35 SEC Sodium Level 138 135-145 MMOL/L Potassium Level 3.9 3.6-5.0 MMOL/L Chloride Level 102 98-107 MMOL/L Carbon Dioxide Level 21 21-32 MMOL/L Anion Gap 15 H 5-14 MMOL/L Blood Urea Nitrogen 20 H 7-18 MG/DL Creatinine 0.91 0.60-1.30 MG/DL Estimat Glomerular Filtration Rate 68 BUN/Creatinine Ratio 22 Glucose Level 298 H 70-105 MG/DL Calcium Level 10.2 H 8.5-10.1 MG/DL Corrected Calcium 8.5-10.1 MG/DL Magnesium Level 1.8 1.6-2.4 MG/DL Total Bilirubin 0.6 0.1-1.0 MG/DL Aspartate Amino Transf (AST/SGOT) 15 5-34 U/L Alanine Aminotransferase (ALT/SGPT) 24 0-55 U/L Alkaline Phosphatase 37 L 40-136 U/L Myoglobin 256.3 H 10.0-92.0 NG/ML Troponin I < 0.028 <0.028 NG/ML Total Protein 7.4 6.4-8.2 GM/DL Albumin 4.6 H 3.2-4.5 GM/DL My Orders Orders - AKASH ANGULO Continuous Ekg Monitoring (07/20/21 02:59) Ekg Tracing (07/20/21 02:59) Cbc With Automated Diff (07/20/21 03:18) Magnesium (07/20/21 03:18) Chest 1 View, Ap/Pa Only (07/20/21 03:18) Comprehensive Metabolic Panel (07/20/21 03:18) Myoglobin Serum (07/20/21 03:18) Protime With Inr (07/20/21 03:18) Partial Thromboplastin Time (07/20/21 03:18) O2 (07/20/21 03:18) Lipid Panel (07/21/21 06:00) Ed Iv/Invasive Line Start (07/20/21 03:18) Troponin I Emmet (07/20/21 03:18) Nitroglycerin 0.4 Mg Btl 25's (Nitrostat (07/20/21 03:30) Aspirin Chewable Tablet (Baby Aspirin Ch (07/20/21 03:30) Labetalol Injection (Normodyne Injection (07/20/21 03:45) Medications Given in ED Vital Signs/I&O 07/20/21 02:58 Temp 37.1 Pulse 101 Resp 18 B/P (MAP) 243/138 (173) Pulse Ox 97 O2 Delivery Room Air Blood Pressure Mean: 173 Progress Progress Note : Time: 03:36 Progress Note 243 mg of aspirin, a tablet of nitroglycerin brought her pain from a 1-0 and her blood pressure of 230 down to 204 systolic. We will give her labetalol for her hypertension and obtain a troponin, chest x-ray and blood work. Initial ECG Impression Date: Jul 20, 2021 Initial ECG Impression Time: 02:59 Initial ECG Rate: 95 Initial ECG Rhythm: Normal Sinus Initial ECG Intervals: QT (470) Initial ECG Impression: Normal Initial ECG Comparisson: No Previous ECG Available, Changed Comment Normal sinus rhythm without clinically relevant ST elevation. Borderline prolonged QTC. Diagnostic Imaging Diagonstic Imaging: Xray Plain Films/CT/US/NM/MRI: chest Comments [facility] [place] NAME: FERNANDO TRIMBLE [facility] REC#: [id number] PT STATUS: ADM Lili : 1950 PHYSICIAN: AKASH ANGULO MD ADMIT DATE: 07/20/21 Signed Date of Exam:07/20/21 CHEST 1 VIEW, AP/PA ONLY Indication: Chest pain AP view of the chest is obtained with comparison made to study of 10/01/2013. Overall heart size at upper limits normal. Pulmonary vascularity is unremarkable. There is no evidence of pneumothorax or consolidation. Postoperative findings in the mediastinum are again noted. IMPRESSION: No acute abnormality. Dictated by: Dictated on workstation # [id number] Dict: 07/20/21 0642 Trans: 07/20/21 1000 [facility] [phone] Interpreted by: LASHAY GARZA MD Electronically signed by: LASHAY GARZA MD 07/20/21 1000 Reviewed: Reviewed by Me Departure Communication (Admissions) Time/Spoke to Admitting Phy: 04:[address] Long and she agrees to observe the patient with cardiac consultation Time/Spoke to Consulting Phy: 04:30 Discussed the case with Dr. Vazquez, cardiology and he agrees to consult on the patient Impression Primary Impression: Unstable angina Additional Impression: COVID-19 Disposition: 09 ADMITTED INPATIENT Condition: Stable Admissions Decision to Admit Reason: Admit from ER (General) Decision to Admit/Date: Jul 20, 2021 Time/Decision to Admit Time: 04:20 Departure-Patient Inst. Referrals: MEENU LONG DO (PCP/Family) Primary Care Physician AKASH ANGULO Jul 20, 2021 03:23
[2021-07-20 03:28] LABS: BASOPHILS % (AUTO) 0 % (0-10); EOSINOPHILS % (AUTO) 0 % (0-10); HEMATOCRIT 37 % (35-52); HEMOGLOBIN 12.3 g/dL (11.5-16.0); LYMPHOCYTES # (AUTO) 0.6 10^3/uL (1.0-4.0); LYMPHOCYTES % (AUTO) 10 % (12-44); MEAN CORPUSCULAR HEMOGLOBIN 28 pg (25-34); MEAN CORPUSCULAR HGB CONC 34 g/dL (32-36); MEAN CORPUSCULAR VOLUME 85 fL (80-99); MEAN PLATELET VOLUME 10.7 fL (9.0-12.2); MONOCYTES # (AUTO) 0.2 10^3/uL (0.0-1.0); MONOCYTES % (AUTO) 4 % (0-12); NEUTROPHILS # (AUTO) 5.4 10^3/uL (1.8-7.8); NEUTROPHILS % (AUTO) 87 % (42-75); PLATELET COUNT 163 10^3/uL (130-400); WHITE BLOOD COUNT 6.2 10^3/uL (4.3-11.0)
[2021-07-20] MEDS ORDERED: NITROGLYCERIN 0.4 MG SL TABS BTL 25'S SL PRN ×2 (03:30→06:15)
[2021-07-20] MEDS ORDERED: ASPIRIN 81 MG CHEW (CHILDREN'S ASA) PO ONE (03:30)
[2021-07-20 03:38] LABS: ALBUMIN 4.6 GM/DL (3.2-4.5); CHLORIDE 102 MMOL/L (98-107); POTASSIUM 3.9 MMOL/L (3.6-5.0); SODIUM 138 MMOL/L (135-145)
[2021-07-20 03:39] LABS: CALCIUM 10.2 MG/DL (8.5-10.1)
[2021-07-20 03:40] LABS: GLUCOSE 298 MG/DL (70-105); INR 1.1 (0.8-1.4); PROTHROMBIN TIME PATIENT 14.2 SEC (12.2-14.7); TOTAL PROTEIN 7.4 GM/DL (6.4-8.2)
[2021-07-20 03:41] LABS: CARBON DIOXIDE 21 MMOL/L (21-32)
[2021-07-20 03:42] LABS: BILIRUBIN,TOTAL 0.6 MG/DL (0.1-1.0)
[2021-07-20 03:44] LABS: ALKALINE PHOSPHATASE 37 U/L (40-136); CREATININE SERUM 0.91 MG/DL (0.60-1.30); GFR ESTIMATED 68
[2021-07-20 03:45] LABS: BUN/CREATININE RATIO 22
[2021-07-20] MEDS ORDERED: cloNIDine 0.1 MG (CATAPRES) TAB PO ONE (03:45)
[2021-07-20] MEDS ORDERED: LABETALOL HCL 20 MG/4 ML VIAL IV ONE (03:45)
[2021-07-20 03:47] LABS: ALANINE AMINOTRANSFERASE 24 U/L (0-55); MAGNESIUM 1.8 MG/DL (1.6-2.4)
[2021-07-20] MEDS ORDERED: CATHETER FLUSH 10 ML SYR IV PRN (06:00)
[2021-07-20] MEDS: CATHETER FLUSH 10 ML SYR IV SCH ×2 (06:07→13:06)
[2021-07-20] MEDS ORDERED: amLODIPine 5 MG (NORVASC) TAB PO PRN (06:15)
[2021-07-20] MEDS ORDERED: ONDANSETRON 4 MG/2 ML (SDV) Z0FRAN IVP PRN (06:15)
[2021-07-20] MEDS ORDERED: ACETAMINOPHEN 325 MG TABLET PO PRN (06:15)
[2021-07-20] MEDS: inSUlin ASPART (NovoLOG) 1 UNIT/0.01 ML (CHARGE PER UNIT) SC SCH ×3 (06:17→16:38)
--- NOTE | 2021-07-20 06:47 | Diagnostic Imaging Report ---
Indication: Chest pain AP view of the chest is obtained with comparison made to study of 10/01/2013. Overall heart size at upper limits normal. Pulmonary vascularity is unremarkable. There is no evidence of pneumothorax or consolidation. Postoperative findings in the mediastinum are again noted. IMPRESSION: No acute abnormality. Dictated by: Dictated on workstation # [id number]
--- NOTE | 2021-07-20 08:02 | Consultation-Cardiology ---
HPI-Cardiology Cardiology Consultation: Date of Consultation 07/20/21 Date of Admission Attending Physician Tonya Long DO Admitting Physician Tonya Long DO Consulting Physician JEREMY CARL Review of Systems-Cardiology All Other Systems Reviewed Negative Unless Noted: Yes ENF-Uryjrw-Ksepfe Hx Patient Social History Smoking Status: Never a Smoker Have you traveled recently?: No Alcohol Use?: No Pt feels they are or have been: No Immunizations Up To Date Tetanus Booster (TDap): Unknown Date of Pneumonia Vaccine: Jul 08, 2007 Date of Influenza Vaccine: May 18, 2020 Past Medical History PMH As described under Assessment. Family Medical History Family History: Chest pain 03 FATHER 09 BROTHER Congestive heart failure 03 FATHER Dementia 03 MOTHER Family history: Alzheimer's disease 03 MOTHER Family history: Cardiovascular disease 03 FATHER 09 BROTHER Family history: Diabetes mellitus 03 FATHER Family history: Hypertension 03 MOTHER Headache 03 FATHER 03 MOTHER 09 BROTHER 09 BROTHER Heart disease 03 FATHER 09 BROTHER History of - anemia 03 MOTHER Hypercholesterolemia 09 BROTHER Myocardial infarction 03 FATHER Parkinson's disease 03 MOTHER Psychotic disorder 03 MOTHER No Family History of: Abdominal aortic aneurysm Williams's disease Alcoholism Aphasia Cancer Cancer of colon Cataract Congenital heart disease Cystic fibrosis Dysphagia Family history: Allergy Family history: Arthritis Family history: Asthma Family history: Breast disease Family history: Coronary thrombosis Family history: Gastrointestinal disease Family history: Glaucoma Family history: Osteoporosis Family history: Thyroid disorder Hearing loss Hereditary disease History of - disorder History of - respiratory disease History of drug abuse Human immunodeficiency virus (HIV) seropositivity Infertile Kidney disease Malignant neoplasm of lung Prostate cancer Seizure disorder Stroke Tuberculosis Visual impairment Allergies and Home Medications Allergies Coded Allergies: Penicillins (Verified Allergy, Unknown, 02/08/18) codeine (Verified Allergy, Unknown, 02/08/18) morphine (Unverified Allergy, Unknown, 02/08/18) Patient Home Medication List Aspirin (Aspirin) 81 Mg Tab.chew, 81 MG PO DAILY, (Reported) Entered as Reported by: CHELSIE PERRIN on 02/08/18 110 Atorvastatin Calcium (Atorvastatin Calcium) 40 Mg Tablet, 40 MG PO HS, (Reported) Entered as Reported by: CHELSIE PERRIN on 02/08/18 1107 Calcium Carbonate/Vitamin D3 (Calcium 500 + D Tablet) 1 Each Tablet, 1 EACH PO DAILY, (Reported) Entered as Reported by: CHELSIE PERRIN on 02/08/181106 Carvedilol (Carvedilol) 6.25 Mg Tablet, 6.25 MG PO BID, (Reported) Entered as Reported by: CHELSIE PERRIN on 02/08/181106 Clopidogrel Bisulfate (Plavix) 75 Mg Tablet, 75 MG PO DAILY, (Reported) Entered as Reported by: CHELSIE PERRIN on 02/08/181106 Famotidine (Acid Case Operator (FAMOTIDINE)) 20 Mg Tablet, 20 MG PO HS, (Reported) Entered as Reported by: CHELSIE PERRIN on 02/08/181106 Fenofibrate,Micronized (Fenofibrate) 134 Mg Capsule, 134 MG PO HS, (Reported) Entered as Reported by: CHELSIE PERRIN on 02/08/181106 Fish Oil/Borage/Flax/Om3,6,9#1 ([place] 3-6-9 1,200 mg Softgel) 1,200 Mg Capsule, PO BID, (Reported) Entered as Reported by: CHELSIE PERRIN on 02/08/181106 Isosorbide Mononitrate (Isosorbide Mononitrate ER) 30 Mg Tab.er.24h, 30 MG PO DAILY, (Reported) Entered as Reported by: CHELSIE PERRIN on 02/08/181106 Lisinopril (Lisinopril) 20 Mg Tablet, 20 MG PO DAILY, (Reported) Entered as Reported by: CATERINA KAUR on 03/18/16 3642 Multivitamin (Daily Multiple Vitamin) 1 Each Tablet, 1 EACH PO DAILY, (Reported) Entered as Reported by: CHELSIE PERRIN on 02/08/181106 Pioglitazone HCl/Metformin HCl (Actoplus Met 15 mg-850 mg Tab) 1 Each Tablet, 1 EACH PO DAILY, (Reported) Entered as Reported by: CHELSIE PERRIN on 02/08/181106 Sitagliptin Phosphate (Januvia) 25 Mg Tablet, 25 MG PO HS, (Reported) Entered as Reported by: CHELSIE PERRIN on 02/08/181106 Physical Exam-Cardiology Physical Exam Vital Signs/I&O 1/26/22 07/20/21 07/20/21 07/20/21 02:58 05:10 05:46 06:00 Temp 37.1 37.1 36.8 Pulse 101 75 62 71 Resp 18 16 18 B/P (MAP) 243/138 (173) 182/97 196/78 (117) Pulse Ox 97 96 97 O2 Delivery Room Air Room Air Room Air 07/20/21 07/20/21 07/20/21 07/20/21 06:00 06:08 06:15 06:30 Pulse 72 72 66 B/P (MAP) 191/82 (118) 175/79 (111) 172/88 (116) Pulse Ox 96 96 97 97 O2 Delivery Room Air Room Air Room Air 07/20/21 06:44 Temp 36.7 Pulse 69 Resp 18 B/P (MAP) 175/87 (116) Pulse Ox 97 O2 Delivery Room Air Capillary Refill : NONE Data Review Labs Laboratory Tests 07/20/21 03:18: White Blood Count 6.2, Red Blood Count 4.34, Hemoglobin 12.3, Hematocrit 37, Mean Corpuscular Volume 85, Mean Corpuscular Hemoglobin 28, Mean Corpuscular Hemoglobin Concent 34, Red Cell Distribution Width 13.9, Platelet Count 163, Mean Platelet Volume 10.7, Immature Granulocyte % (Auto) 1, Neutrophils (%) (Auto) 87H, Lymphocytes (%) (Auto) 10L, Monocytes (%) (Auto) 4, Eosinophils (%) (Auto) 0, Basophils (%) (Auto) 0, Neutrophils # (Auto) 5.4, Lymphocytes # (Auto) 0.6L, Monocytes # (Auto) 0.2, Eosinophils # (Auto) 0.0, Basophils # (Auto) 0.0, Immature Granulocyte # (Auto) 0.0, Prothrombin Time 14.2, INR Comment 1.1, Activated Partial Thromboplast Time 35, Sodium Level 138, Potassium Level 3.9, Chloride Level 102, Carbon Dioxide Level 21, Anion Gap 15H, Blood Urea Nitrogen 20H, Creatinine 0.91, Estimat Glomerular Filtration Rate 68, BUN/Creatinine Ratio 22, Glucose Level 298H, Calcium Level 10.2H, Corrected Calcium , Magnesium Level 1.8, Total Bilirubin 0.6, Aspartate Amino Transf (AST/SGOT) 15, Alanine Aminotransferase (ALT/SGPT) 24, Alkaline Phosphatase 37L, Myoglobin 256.3H, Troponin I < 0.028, Total Protein 7.4, Albumin 4.6H 07/20/21 06:11: Glucometer 243H Laboratory Tests 07/20/21 03:18 Radiology NAME: FERNANDO TRIMBLE [facility] REC#: [id number] PT STATUS: ADM Lili : 1950 PHYSICIAN: AKASH ANGULO MD ADMIT DATE: 07/20/21 Draft Date of Exam:07/20/21 CHEST 1 VIEW, AP/PA ONLY Indication: Chest pain AP view of the chest is obtained with comparison made to study of 10/01/2013. Overall heart size at upper limits normal. Pulmonary vascularity is unremarkable. There is no evidence of pneumothorax or consolidation. Postoperative findings in the mediastinum are again noted. IMPRESSION: No acute abnormality. Dictated on workstation # [id number] Dict: 07/20/21 0642 Trans: 07/20/21 0646 [facility] [id number] Interpreted by: LASHAY GARZA MD Electronically signed by: A/P-Cardiology Assessment/Admission Diagnosis Chest pain - undetermined etiology Uncontrolled HTN COVID (+) PAF - S/P ILR implant on May 25, 2020 for c/o palpitations - PAF first seen on ILR transmission of May 30, 2020 - OAC with Eliquis for stroke prophylaxis CAD - CABG in 2006. - Underwent cath by Dr Pantoja in September 2013. It showed severe LMCA and ostial LAD disease and total occlusion of LAD past a diagonal. LCX was occluded at its ostium and ther RCA in its mid portion. [place] to LAD was patent. SVG to OM 1 was patent. SVG to RCA was severely diseased. Subsequently, she underwent LMCA stenting with Promus Jayy 2.[address] Dickey on 10/20/13 at [facility]. RCA SVG was not found to be suitable for intervention and was treated conservatively - MPI of May 14, 2020 showed a small amt of basal inferior ischemia. Normal regional wall motion . LVEF 58%, essentially unchanged from previous MPI of Apr 09, 2018 which matches known occluded RCA with severe degeneration of graft to RCA which is not amenable to intervention per cardiac cath by Dr. Marroquin in 2013 - Echo of May 2019 showed normal LVEF 55-60%. Mild MR Carotid dz - Minimal bilat carotid art disease on carotid u/s of 11/14/18 Hematology - Chronic mild leukopenia, anemia and mild thrombocytopenia, followed by Dr Ethan BAINS II - managed by PCP Hyperlipidemia - statin tx - managed by PCP Clinical Quality Measures AMI/AHF: ASA po Prior to arrival: Yes (1 BABY ASA DAILY) JEREMY PENG Jul 20, 2021 08:02
[2021-07-20] MEDS ORDERED: LOSARTAN 100 MG (COZAAR) TABLET PO SCH (09:00)
[2021-07-20] MEDS ORDERED: FAMOTIDINE 20 MG (PEPCID) TABLET PO PRN (09:00)
[2021-07-20] MEDS ORDERED: ISOSORBIDE MONONITRATE 30 MG (IMDUR) TAB PO SCH (09:00)
[2021-07-20] MEDS ORDERED: dilTIAZem120 MG (CARDIZEM CD) CAP PO SCH (09:00)
[2021-07-20] MEDS ORDERED: FENO135C4 PO (09:45)
[2021-07-20] MEDS ORDERED: GLIP5TAB26 PO (09:45)
[2021-07-20] MEDS ORDERED: DILT-27 PO (09:45)
[2021-07-20] MEDS ORDERED: METF-399 PO (09:45)
[2021-07-20] MEDS ORDERED: ASPI-1238 PO (09:45)
[2021-07-20] MEDS ORDERED: MULT-1136 PO (09:45)
[2021-07-20] MEDS ORDERED: CETI10TA17 PO (09:45)
[2021-07-20] MEDS ORDERED: ACET-2267 PO (09:45)
[2021-07-20] MEDS ORDERED: CARV25TA PO (09:45)
[2021-07-20] MEDS ORDERED: DEXA2TAB PO (09:45)
[2021-07-20] MEDS ORDERED: FAMO-144 PO (09:45)
[2021-07-20] MEDS ORDERED: RT-ALBUINH IH (09:45)
[2021-07-20] MEDS ORDERED: LOSA100T57 PO (09:45)
[2021-07-20] MEDS ORDERED: APIX5TAB PO (09:46)
--- NOTE | 2021-07-20 16:06 | Consultation-Cardiology ---
HPI-Cardiology Cardiology Consultation: Date of Consultation 07/20/21 Time Seen by a Provider: 09:15 Date of Admission Attending Physician Tonya Long DO Admitting Physician Tonya Long DO Consulting Physician MANAN ADLER MD, MA, FACP, FACC, FSCAI, CCDS HPI: Chief Complaint: L elbow discomfort 70 yo woman with known CAD and ch a fib who was admitted with L elbow pain that began at rest and lasted 3-4 hours continuously before slowly resolving in the hospital. No aggravating or relieving factors for this pain. No cp or palp or syncope or swelling. Mild gen malaise. Recent COVID-19 Review of Systems-Cardiology Review of Systems Constitutional: As described under HPI Eyes: No vision change Ears/Nose/Throat: No ear discharge, No nasal drainage, No recent hearing loss Respiratory: As described under HPI Cardiovascular: As described under HPI Gastrointestinal: No constipation, No diarrhea, No nausea Genitourinary: No dysuria, No hematuria Musculoskeletal: No back pain, No muscle pain Skin: No rash, No ulcerations Psychiatric/Neurological: No seizure, No focal weakness, No syncope Hematologic: No bleeding abnormalities All Other Systems Reviewed Negative Unless Noted: Yes MIH-Hxkmoo-Gdexkn Hx Patient Social History Smoking Status: Never a Smoker Have you traveled recently?: No Alcohol Use?: No Pt feels they are or have been: No Immunizations Up To Date Tetanus Booster (TDap): Unknown Date of Pneumonia Vaccine: Jul 08, 2007 Date of Influenza Vaccine: May 18, 2020 Past Medical History PMH As described under Assessment. Family Medical History Family History: Chest pain 03 FATHER 09 BROTHER Congestive heart failure 03 FATHER Dementia 03 MOTHER Family history: Alzheimer's disease 03 MOTHER Family history: Cardiovascular disease 03 FATHER 09 BROTHER Family history: Diabetes mellitus 03 FATHER Family history: Hypertension 03 MOTHER Headache 03 FATHER 03 MOTHER 09 BROTHER 09 BROTHER Heart disease 03 FATHER 09 BROTHER History of - anemia 03 MOTHER Hypercholesterolemia 09 BROTHER Myocardial infarction 03 FATHER Parkinson's disease 03 MOTHER Psychotic disorder 03 MOTHER No Family History of: Abdominal aortic aneurysm [place]'s disease Alcoholism Aphasia Cancer Cancer of colon Cataract Congenital heart disease Cystic fibrosis Dysphagia Family history: Allergy Family history: Arthritis Family history: Asthma Family history: Breast disease Family history: Coronary thrombosis Family history: Gastrointestinal disease Family history: Glaucoma Family history: Osteoporosis Family history: Thyroid disorder Hearing loss Hereditary disease History of - disorder History of - respiratory disease History of drug abuse Human immunodeficiency virus (HIV) seropositivity Infertile Kidney disease Malignant neoplasm of lung Prostate cancer Seizure disorder Stroke Tuberculosis Visual impairment Allergies and Home Medications Allergies Coded Allergies: Penicillins (Verified Allergy, Unknown, 02/08/18) codeine (Verified Allergy, Unknown, 02/08/18) morphine (Unverified Allergy, Unknown, 02/08/18) Patient Home Medication List Home Medication List Reviewed: Yes Acetaminophen (Tylenol Extra Strength) 500 Mg Tablet, 500-1,000 MG PO Q8H PRN for PAIN-MILD (1-4), (Reported) Entered as Reported by: YARA SUAREZ on 07/20/21944 Last Action: Reviewed Albuterol Sulfate (Proair Hfa) 1 Puff Puff, 2 PUFF IH Q4H PRN for SHORTNESS OF BREATH, (Reported) Entered as Reported by: YARA SUAREZ on 07/20/21944 Last Action: Reviewed Apixaban (Eliquis) 5 Mg Tablet, 5 MG PO BID, (Reported) Entered as Reported by: YARA SUAREZ on 07/20/21945 Last Action: Reviewed Aspirin (Aspirin EC) 81 Mg Tablet.dr, 81 MG PO HS, (Reported) Entered as Reported by: YARA SUAREZ on 07/20/21944 Last Action: Reviewed Atorvastatin Calcium (Atorvastatin Calcium) 40 Mg Tablet, 40 MG PO HS, (Rep orted) Entered as Reported by: CHELSIE PERRIN on 02/08/18 1107 Last Action: Reviewed Carvedilol (Carvedilol) 25 Mg Tablet, 25 MG PO BID, (Reported) Entered as Reported by: YARA SUAREZ on 07/20/21944 Last Action: Reviewed Cetirizine HCl (Cetirizine HCl) 10 Mg Tablet, 10 MG PO DAILY PRN for ALLERGY SYMPTOMS, (Reported) Entered as Reported by: YARA SUAREZ on 07/20/21944 Last Action: Reviewed Dexamethasone (Dexamethasone) 2 Mg Tablet, 6 MG PO DAILY, (Reported) Entered as Reported by: YARA SUAREZ on 07/20/21944 Last Action: Reviewed Diltiazem HCl (Diltiazem 24Hr ER) 120 Mg Cap.er.24h, 120 MG PO DAILY, (Reported) Entered as Reported by: YARA SUAREZ on 07/20/21944 Last Action: Reviewed Famotidine (Acid Fire Hydrant Mechanic (FAMOTIDINE)) 10 Mg Tablet, 10 MG PO HS, (Reported) Entered as Reported by: YARA SUAREZ on 07/20/21944 Last Action: Reviewed Fenofibric Acid (Choline) (Fenofibric Acid) 135 Mg Capsule.dr, 135 MG PO HS, (Reported) Entered as Reported by: YARA SUAREZ on 07/20/21944 Last Action: Reviewed Fish Oil/Borage/Flax/Om3,6,9#1 (Bristow 3-6-9 1,200 mg Softgel) 1,200 Mg Capsule, 1 EA PO BID, (Reported) Entered as Reported by: CHELSIE PERRIN on 02/08/181106 Last Action: Reviewed Glipizide (Glipizide ER) 5 Mg Tab.er.24, 5 MG PO DAILY, (Reported) Entered as Reported by: YARA SUAREZ on 07/20/21944 Last Action: Reviewed Isosorbide Mononitrate (Isosorbide Mononitrate ER) 30 Mg Tab.er.24h, 30 MG PO DAILY, (Reported) Entered as Reported by: CHELSIE PERRIN on 02/08/181106 Last Action: Reviewed Losartan Potassium (Losartan Potassium) 100 Mg Tablet, 100 MG PO HS, (Reported) Entered as Reported by: YARA SUAREZ on 07/20/21944 Last Action: Reviewed Metformin HCl (Metformin HCl) 1,000 Mg Tablet, 1,000 MG PO BID, (Reported) Entered as Reported by: YARA SUAREZ on 07/20/21944 Last Action: Reviewed Multivitamin (Multivitamin) 1 Each Tablet, 1 EACH PO DAILY, (Reported) Entered as Reported by: YARA SUAREZ on 07/20/21944 Last Action: Reviewed Discontinued Medications Calcium Carbonate/Vitamin D3 (Calcium 500 + D Tablet) 1 Each Tablet, 1 EACH PO DAILY, (Reported) Discontinued Reason: No Longer Taking Entered as Reported by: CHELSIE PERRIN on 02/08/181106 Last Action: Discontinued Carvedilol (Carvedilol) 6.25 Mg Tablet, 6.25 MG PO BID, (Reported) Discontinued Reason: No Longer Taking Entered as Reported by: CHELSIE PERRIN on 02/08/181106 Last Action: Discontinued Clopidogrel Bisulfate (Plavix) 75 Mg Tablet, 75 MG PO DAILY, (Reported) Discontinued Reason: No Longer Taking Entered as Reported by: CHELSIE PERRIN on 02/08/181106 Last Action: Discontinued Famotidine (Acid Fire Hydrant Mechanic (FAMOTIDINE)) 20 Mg Tablet, 20 MG PO HS, (Reported) Discontinued Reason: Prescription changed Entered as Reported by: CHELSIE PERRIN on 02/08/181106 Fenofibrate,Micronized (Fenofibrate) 134 Mg Capsule, 134 MG PO HS, (Reported) Discontinued Reason: No Longer Taking Entered as Reported by: CHELSIE PERRIN on 02/08/181106 Last Action: Discontinued Lisinopril (Lisinopril) 20 Mg Tablet, 20 MG PO DAILY, (Reported) Discontinued Reason: No Longer Taking Entered as Reported by: CATERINA KAUR on 03/18/16 583 Last Action: Discontinued Multivitamin (Daily Multiple Vitamin) 1 Each Tablet, 1 EACH PO DAILY, (Reported) Discontinued Reason: No Longer Taking Entered as Reported by: CHELSIE PERRIN on 02/08/181106 Last Action: Discontinued Pioglitazone HCl/Metformin HCl (Actoplus Met 15 mg-850 mg Tab) 1 Each Tablet, 1 EACH PO DAILY, (Reported) Discontinued Reason: No Longer Taking Entered as Reported by: CHELSIE PERRIN on 02/08/181106 Last Action: Discontinued Sitagliptin Phosphate (Januvia) 25 Mg Tablet, 25 MG PO HS, (Reported) Discontinued Reason: No Longer Taking Entered as Reported by: CHELSIE PERRIN on 02/08/181106 Last Action: Discontinued Physical Exam-Cardiology Physical Exam Vital Signs/I&O 07/20/21 07/20/21 07/20/21 07/20/21 05:10 05:46 06:00 06:00 Temp 37.1 36.8 Pulse 75 62 71 72 Resp 16 18 B/P (MAP) 182/97 196/78 (117) 191/82 (118) Pulse Ox 96 97 96 O2 Delivery Room Air Room Air 07/20/21 07/20/21 07/20/2107/20/22 06:08 06:15 06:30 06:44 Temp 36.7 Pulse 72 66 69 Resp 18 B/P (MAP) 175/79 (111) 172/88 (116) 175/87 (116) Pulse Ox 96 97 97 97 O2 Delivery Room Air Room Air Room Air Room Air 07/20/21 07/20/21 07/20/21 07/20/21 07:00 07:59 08:00 12:00 Temp 36.8 36.4 Pulse 69 60 64 Resp 20 20 B/P (MAP) 177/77 (110) 177/78 (111) Pulse Ox 94 94 96 O2 Delivery Room Air Room Air Room Air 07/20/21 13:06 Pulse 68 Capillary Refill : NONE Constitutional: AAO x 3, well-developed, well-nourished HEENT: EOMI, hearing is well preserved; No xanthelasmas are seen Neck: carotid pulses are 2 + bilaterally, with good upstrokes Respiratory: No accessory muscle use; other (good, bilat air entry) Cardiovascular: irregularly irregular, S1 and S2, systolic murmur (soft JR at card base) Gastrointestinal: No tender; soft; No guarding, No rebound; audible bowel sounds Extremities: No clubbing, No cyanosis, No significant edema Neurologic/Psychiatric: oriented x 3, other (moves all limbs equally) Skin: warm/dry; No rash on exposed areas, No ulcerations on exposed areas Data Review Labs Laboratory Tests 07/20/21 03:18: White Blood Count 6.2, Red Blood Count 4.34, Hemoglobin 12.3, Hematocrit 37, Mean Corpuscular Volume 85, Mean Corpuscular Hemoglobin 28, Mean Corpuscular Hemoglobin Concent 34, Red Cell Distribution Width 13.9, Platelet Count 163, Mean Platelet Volume 10.7, Immature Granulocyte % (Auto) 1, Neutrophils (%) (Auto) 87H, Lymphocytes (%) (Auto) 10L, Monocytes (%) (Auto) 4, Eosinophils (%) (Auto) 0, Basophils (%) (Auto) 0, Neutrophils # (Auto) 5.4, Lymphocytes # (Auto) 0.6L, Monocytes # (Auto) 0.2, Eosinophils # (Auto) 0.0, Basophils # (Auto) 0.0, Immature Granulocyte # (Auto) 0.0, Prothrombin Time 14.2, INR Comment 1.1, Activated Partial Thromboplast Time 35, Sodium Level 138, Potassium Level 3.9, Chloride Level 102, Carbon Dioxide Level 21, Anion Gap 15H, Blood Urea Nitrogen 20H, Creatinine 0.91, Estimat Glomerular Filtration Rate 68, BUN/Creatinine Ratio 22, Glucose Level 298H, Calcium Level 10.2H, Corrected Calcium , Magnesium Level 1.8, Total Bilirubin 0.6, Aspartate Amino Transf (AST/SGOT) 15, Alanine Aminotransferase (ALT/SGPT) 24, Alkaline Phosphatase 37L, Myoglobin 256.3H, Troponin I < 0.028, Total Protein 7.4, Albumin 4.6H 07/20/21 06:11: Glucometer 243H 07/20/21 09:05: Troponin I < 0.028 07/20/21 10:41: Glucometer 237H 07/20/21 15:09: Troponin I < 0.028 07/20/21 15:20: Glucometer 230H Laboratory Tests 07/20/21 03:18 A/P-Cardiology Assessment/Admission Diagnosis Transient L elbow pain of undetermined etiology - no evidence of Ac NE HTN COVID (+) PAF - S/P ILR implant on May 25, 2020 for c/o palpitations - PAF first seen on ILR transmission of May 30, 2020 - OAC with Eliquis for stroke prophylaxis CAD - CABG in 2006. - Underwent cath by Dr Pantoja in September 2013. It showed severe LMCA and ostial LAD disease and total occlusion of LAD past a diagonal. LCX was occluded at its ostium and ther RCA in its mid portion. PUTNAM to LAD was patent. SVG to OM 1 was patent. SVG to RCA was severely diseased. Subsequently, she underwent LMCA stenting with Promus Jayy [id number] Dickey on 10/20/[address] [facility]. RCA SVG was not found to be suitable for intervention and was treated conservatively - MPI of May 14, 2020 showed a small amt of basal inferior ischemia. Normal regional wall motion . LVEF 58%, essentially unchanged from previous MPI of Apr 09, 2018 which matches known occluded RCA with severe degeneration of graft to RCA which is not amenable to intervention per cardiac cath by Dr. Marroquin in 2013 - Echo of May 2019 showed normal LVEF 55-60%. Mild MR Carotid dz - Minimal bilat carotid art disease on carotid u/s of 11/14/18 Hematology - Chronic mild leukopenia, anemia and mild thrombocytopenia, followed by Dr Ethan BAINS II - managed by PCP Hyperlipidemia - statin tx - managed by PCP Discussion and Recomendations * Resume previous cardiac meds (see orders) * Risk factor mod reviewed * Outpt f/u advised Clinical Quality Measures AMI/AHF: ASA po Prior to arrival: Yes (1 BABY ASA DAILY) MANAN ADLER MD FACP FAC CCDS Jul 20, 2021 16:06
--- NOTE | 2021-07-20 18:58 | Short Stay Summary ---
History of Present Illness History of Present Illness Reason for visit/HPI This is a 70 year old female with a history of CAD and chronic atrial fibrillation and recent COVID-19 diagnosis. She presented to the emergency room with substernal chest pain and left elbow pain. The pain was not relieved by nitro. She will be admitted to monitor chest pain and cardiac enzymes and consult cardiology. Date of Admission Jul 20, 2021 at 04:30 Date of Discharge Jul 20, 2021 Time Seen by Provider: 12:45 Attending Physician Meenu Long DO Admitting Physician Meenu Long DO Consult Allergies and Home Medications Allergies Coded Allergies: Penicillins (Verified Allergy, Unknown, 02/08/18) codeine (Verified Allergy, Unknown, 02/08/18) morphine (Unverified Allergy, Unknown, 02/08/18) Patient Home Medication List Home Medication List Reviewed: Yes Acetaminophen (Tylenol Extra Strength) 500 Mg Tablet, 500-1,000 MG PO Q8H PRN for PAIN-MILD (1-4), (Reported) Entered as Reported by: YARA SUAREZ on 07/20/21944 Last Action: Reviewed Albuterol Sulfate (Proair Hfa) 1 Puff Puff, 2 PUFF IH Q4H PRN for SHORTNESS OF BREATH, (Reported) Entered as Reported by: YARA SUAREZ on 07/20/21944 Last Action: Reviewed Apixaban (Eliquis) 5 Mg Tablet, 5 MG PO BID, (Reported) Entered as Reported by: YARA SUAREZ on 07/20/21945 Last Action: Reviewed Aspirin (Aspirin EC) 81 Mg Tablet.dr, 81 MG PO HS, (Reported) Entered as Reported by: YARA SUAREZ on 07/20/21944 Last Action: Reviewed Atorvastatin Calcium (Atorvastatin Calcium) 40 Mg Tablet, 40 MG PO HS, (Reported) Entered as Reported by: CHELSIE PERRIN on 02/08/18 110 Last Action: Reviewed Carvedilol (Carvedilol) 25 Mg Tablet, 25 MG PO BID, (Reported) Entered as Reported by: YARA SUAREZ on 07/20/21944 Last Action: Reviewed Cetirizine HCl (Cetirizine HCl) 10 Mg Tablet, 10 MG PO DAILY PRN for ALLERGY SYMPTOMS, (Reported) Entered as Reported by: YARA SUAREZ on 07/20/21944 Last Action: Reviewed Dexamethasone (Dexamethasone) 2 Mg Tablet, 6 MG PO DAILY, (Reported) Entered as Reported by: YARA SUAREZ on 07/20/21944 Last Action: Reviewed Diltiazem HCl (Diltiazem 24Hr ER) 120 Mg Cap.er.24h, 120 MG PO DAILY, (Reported) Entered as Reported by: YARA SUAREZ on 07/20/21944 Last Action: Reviewed Famotidine (Acid It Data Architect (FAMOTIDINE)) 10 Mg Tablet, 10 MG PO HS, (Reported) Entered as Reported by: YARA SUAREZ on 07/20/21944 Last Action: Reviewed Fenofibric Acid (Choline) (Fenofibric Acid) 135 Mg Capsule.dr, 135 MG PO HS, (Reported) Entered as Reported by: YARA SUAREZ on 07/20/21944 Last Action: Reviewed Fish Oil/Borage/Flax/Om3,6,9#1 ([place] 3-6-9 1,200 mg Softgel) 1,200 Mg Capsule, 1 EA PO BID, (Reported) Entered as Reported by: CHELSIE PERRIN on 02/08/181106 Last Action: Reviewed Glipizide (Glipizide ER) 5 Mg Tab.er.24, 5 MG PO DAILY, (Reported) Entered as Reported by: YARA SUAREZ on 07/20/21944 Last Action: Reviewed Isosorbide Mononitrate (Isosorbide Mononitrate ER) 30 Mg Tab.er.24h, 30 MG PO DAILY, (Reported) Entered as Reported by: CHELSIE PERRIN on 02/08/181106 Last Action: Reviewed Losartan Potassium (Losartan Potassium) 100 Mg Tablet, 100 MG PO HS, (Reported) Entered as Reported by: YARA SUAREZ on 07/20/21944 Last Action: Reviewed Metformin HCl (Metformin HCl) 1,000 Mg Tablet, 1,000 MG PO BID, (Reported) Entered as Reported by: YARA SUAREZ on 07/20/21944 Last Action: Reviewed Multivitamin (Multivitamin) 1 Each Tablet, 1 EACH PO DAILY, (Reported) Entered as Reported by: YARA SUAREZ on 07/20/21944 Last Action: Reviewed Discontinued Medications Calcium Carbonate/Vitamin D3 (Calcium 500 + D Tablet) 1 Each Tablet, 1 EACH PO DAILY, (Reported) Discontinued Reason: No Longer Taking Entered as Reported by: CHELSIE PERRIN on 02/08/181106 Last Action: Discontinued Carvedilol (Carvedilol) 6.25 Mg Tablet, 6.25 MG PO BID, (Reported) Discontinued Reason: No Longer Taking Entered as Reported by: CHELSIE PERRIN on 02/08/181106 Last Action: Discontinued Clopidogrel Bisulfate (Plavix) 75 Mg Tablet, 75 MG PO DAILY, (Reported) Discontinued Reason: No Longer Taking Entered as Reported by: CHELSIE PERRIN on 02/08/181106 Last Action: Discontinued Famotidine (Acid It Data Architect (FAMOTIDINE)) 20 Mg Tablet, 20 MG PO HS, (Reported) Discontinued Reason: Prescription changed Entered as Reported by: CHELSIE PERRIN on 02/08/181106 Fenofibrate,Micronized (Fenofibrate) 134 Mg Capsule, 134 MG PO HS, (Reported) Discontinued Reason: No Longer Taking Entered as Reported by: CHELSIE PERRIN on 02/08/181106 Last Action: Discontinued Lisinopril (Lisinopril) 20 Mg Tablet, 20 MG PO DAILY, (Reported) Discontinued Reason: No Longer Taking Entered as Reported by: CATERINA KAUR on 03/18/16 1917 Last Action: Discontinued Multivitamin (Daily Multiple Vitamin) 1 Each Tablet, 1 EACH PO DAILY, (Reported) Discontinued Reason: No Longer Taking Entered as Reported by: CHELSIE PERRIN on 02/08/181106 Last Action: Discontinued Pioglitazone HCl/Metformin HCl (Actoplus Met 15 mg-850 mg Tab) 1 Each Tablet, 1 EACH PO DAILY, (Reported) Discontinued Reason: No Longer Taking Entered as Reported by: CHELSIE PERRIN on 02/08/181106 Last Action: Discontinued Sitagliptin Phosphate (Januvia) 25 Mg Tablet, 25 MG PO HS, (Reported) Discontinued Reason: No Longer Taking Entered as Reported by: CHELSIE PERRIN on 02/08/181106 Last Action: Discontinued Past Sasmbbi-Cpjxak-Zdfttb Hx Patient Social History Marrital Status: Alcohol Beverage of Choice: Beer Smoking Status: Never a Smoker Recent Hopitalizations: No Have you traveled recently?: No Alcohol Use?: No Pt feels they are or have been: No Immunizations Up To Date Tetanus Booster (TDap): Unknown Date of Pneumonia Vaccine: Jul 08, 2007 Date of Influenza Vaccine: May 18, 2020 Seasonal Allergies Seasonal Allergies: Yes Surgeries Yes Adenoidectomy, Appendectomy, Cardiac, CABG, Gallbladder, Oophorectomy, Orthopedic, Tonsillectomy Respiratory No Currently Using CPAP: No Currently Using BIPAP: No Cardiovascular Yes Coronary Artery Disease, Heart Attack, High Cholesterol, Hypertension Neurological No Reproductive System Hx Reproductive Disorders: No Sexually Transmitted Disease: No HIV/AIDS: No Female Reproductive Disorders: Denies, Ovarian Cyst [employer] History: Menopausal Gastrointestinal Yes Gastroesophageal Reflux, Hiatal Hernia Musculoskeletal Yes Arthritis Endocrine History of Endocrine Disorders: Yes Endocrine Disorders: Diabetes, Non-Insulin dep HEENT History of HEENT Disorders: No Loss of Vision: Bilateral Cancer Yes Skin Did You Recieve Any Treatments: Yes Type of Treatment: Surgical Intervention Psychosocial History of Psychiatric Problem: No Blood Transfusions History of Blood Disorders: Yes (HX LOW WBC, ANEMIA) Adverse Reaction to a Blood Tr: No (N/A) Family Medical History Family Hx: Chest pain 03 FATHER 09 BROTHER Congestive heart failure 03 FATHER Dementia 03 MOTHER Family history: Alzheimer's disease 03 MOTHER Family history: Cardiovascular disease 03 FATHER 09 BROTHER Family history: Diabetes mellitus 03 FATHER Family history: Hypertension 03 MOTHER Headache 03 FATHER 03 MOTHER 09 BROTHER 09 BROTHER Heart disease 03 FATHER 09 BROTHER History of - anemia 03 MOTHER Hypercholesterolemia 09 BROTHER Myocardial infarction 03 FATHER Parkinson's disease 03 MOTHER Psychotic disorder 03 MOTHER No Family History of: Abdominal aortic aneurysm [place]'s disease Alcoholism Aphasia Cancer Cancer of colon Cataract Congenital heart disease Cystic fibrosis Dysphagia Family history: Allergy Family history: Arthritis Family history: Asthma Family history: Breast disease Family history: Coronary thrombosis Family history: Gastrointestinal disease Family history: Glaucoma Family history: Osteoporosis Family history: Thyroid disorder Hearing loss Hereditary disease History of - disorder History of - respiratory disease History of drug abuse Human immunodeficiency virus (HIV) seropositivity Infertile Kidney disease Malignant neoplasm of lung Prostate cancer Seizure disorder Stroke Tuberculosis Visual impairment Review of Systems Constitutional: weakness EENTM: hoarseness, nose congestion Respiratory: No no symptoms reported, No see HPI, No cough, No dyspnea on exertion, No hemoptysis, No orthopnea, No phlegm, No short of breath, No stridor, No wheezing, No other Cardiovascular: chest pain Gastrointestinal: No RUQ, No LUQ, No RLQ, No LLQ, No no symptoms reported, No see HPI, No abdominal pain, No constipation, No diarrhea, No dysphagia, No hematemesis, No heartburn, No jaundice, No loss of appetite, No melena, No nausea, No vomiting, No other Genitourinary: No no symptoms reported, No see HPI, No decreased output, No discharge, No dysuria, No frequency, No hematuria, No hesitancy, No incontinence, No nocturia, No pain, No other Musculoskeletal: joint pain (left elbow) Psychiatric/Neurological: Weakness Physical Exam Vital Signs Vital Signs - First Documented 07/20/21 02:58 Temp 37.1 Pulse 101 Resp 18 B/P (MAP) 243/138 (173) Pulse Ox 97 O2 Delivery Room Air Capillary Refill : NONE Height, Weight, BMI Height: 5'9.00" Weight: 183lbs. 0.0oz. 83.243305sw; 27.22 BMI Method:Stated General Appearance: No Apparent Distress HEENT: Other (drainage) Neck: Supple Respiratory: Lungs Clear Cardiovascular: Regular Rate, Rhythm, Systolic Murmur, Gallop/S4 Gastrointestinal: Normal Bowel Sounds, Non Tender, Soft Rectal: Deferred Back: No CVA Tenderness Extremity: Non Tender, No Calf Tenderness, No Pedal Edema Neurologic/Psychiatric: Alert, Oriented x3 Skin: Warm/Dry Comments Laboratory Tests 07/20/21 03:18: White Blood Count 6.2, Red Blood Count 4.34, Hemoglobin 12.3, Hematocrit 37, Mean Corpuscular Volume 85, Mean Corpuscular Hemoglobin 28, Mean Corpuscular Hemoglobin Concent 34, Red Cell Distribution Width 13.9, Platelet Count 163, Mean Platelet Volume 10.7, Immature Granulocyte % (Auto) 1, Neutrophils (%) (Auto) 87H, Lymphocytes (%) (Auto) 10L, Monocytes (%) (Auto) 4, Eosinophils (%) (Auto) 0, Basophils (%) (Auto) 0, Neutrophils # (Auto) 5.4, Lymphocytes # (Auto) 0.6L, Monocytes # (Auto) 0.2, Eosinophils # (Auto) 0.0, Basophils # (Auto) 0.0, Immature Granulocyte # (Auto) 0.0, Prothrombin Time 14.2, INR Comment 1.1, Activated Partial Thromboplast Time 35, Sodium Level 138, Potassium Level 3.9, Chloride Level 102, Carbon Dioxide Level 21, Anion Gap 15H, Blood Urea Nitrogen 20H, Creatinine 0.91, Estimat Glomerular Filtration Rate 68, BUN/Creatinine Ratio 22, Glucose Level 298H, Calcium Level 10.2H, Corrected Calcium , Magnesium Level 1.8, Total Bilirubin 0.6, Aspartate Amino Transf (AST/SGOT) 15, Alanine Aminotransferase (ALT/SGPT) 24, Alkaline Phosphatase 37L, Myoglobin 256.3H, Troponin I < 0.028, Total Protein 7.4, Albumin 4.6H 07/20/21 06:11: Glucometer 243H 07/20/21 09:05: Troponin I < 0.028 07/20/21 10:41: Glucometer 237H 07/20/21 15:09: Troponin I < 0.028 07/20/21 15:20: Glucometer 230H Clinical Quality Measures AMI/AHF: ASA po Prior to arrival: Yes (1 BABY ASA DAILY) Short Stay Diagnosis Discharge Diagnosis-Short Stay Final Discharge Diagnosis: 1. Chest Pain--noncardiac, likely chest wall 2. Left Elbow Pain--resolved 3. Hypertension 4. CAD--will fwup with Cardiology in next 2 weeks 5. Chronic Atrial Fibrillation--rate controlled 6. COVID-19--mild symptoms 7. DMII--stable Conclusion Labs Laboratory Tests 07/20/21 03:18: White Blood Count 6.2, Red Blood Count 4.34, Hemoglobin 12.3, Hematocrit 37, Mean Corpuscular Volume 85, Mean Corpuscular Hemoglobin 28, Mean Corpuscular Hemoglobin Concent 34, Red Cell Distribution Width 13.9, Platelet Count 163, Mean Platelet Volume 10.7, Immature Granulocyte % (Auto) 1, Neutrophils (%) (Auto) 87H, Lymphocytes (%) (Auto) 10L, Monocytes (%) (Auto) 4, Eosinophils (%) (Auto) 0, Basophils (%) (Auto) 0, Neutrophils # (Auto) 5.4, Lymphocytes # (Auto) 0.6L, Monocytes # (Auto) 0.2, Eosinophils # (Auto) 0.0, Basophils # (Auto) 0.0, Immature Granulocyte # (Auto) 0.0, Prothrombin Time 14.2, INR Comment 1.1, Activated Partial Thromboplast Time 35, Sodium Level 138, Potassium Level 3.9, Chloride Level 102, Carbon Dioxide Level 21, Anion Gap 15H, Blood Urea Nitrogen 20H, Creatinine 0.91, Estimat Glomerular Filtration Rate 68, BUN/Creatinine R atio 22, Glucose Level 298H, Calcium Level 10.2H, Corrected Calcium , Magnesium Level 1.8, Total Bilirubin 0.6, Aspartate Amino Transf (AST/SGOT) 15, Alanine Aminotransferase (ALT/SGPT) 24, Alkaline Phosphatase 37L, Myoglobin 256.3H, Troponin I < 0.028, Total Protein 7.4, Albumin 4.6H 07/20/21 06:11: Glucometer 243H 07/20/21 09:05: Troponin I < 0.028 07/20/21 10:41: Glucometer 237H 07/20/21 15:09: Troponin I < 0.028 07/20/21 15:20: Glucometer 230H Conclusion/Plan This is a 70 year old female with a history of CAD and chronic atrial fibrillation [facility] She presented to the emergency room with substernal chest pain and left elbow pain. The pain was not relieved by nitro. She will be admitted to monitor chest pain and cardiac enzymes and consult cardiology. She was admitted to the medical telemetry floor in [address] Her chest pain and elbow pain resolved. Her repeat cardiac enzymes were normal. She had no shortness of air and did not require oxygen. Her EKG showed no acute S-T segment changes. It was decided that she would be discharged home with follow up next week with cardiology to discuss any further workup needed. Her monoclonal antibody infusion was cancelled due to not having available Sotrovimab but she is feeling better and only having sinus congestion so she will continue with supportive care on discharge for her [place] [id number]. MEENU LONG DO Jul 20, 2021 18:58
[2021-07-21] MEDS ORDERED: ASPIRIN E.C. 81 MG (ECOTRIN) TAB PO SCH (09:00)
== END 2021-07-20 17:50 | disposition home or self-care (01) ==
LOC: EDUNIT# 02:39 → ER 02:44 → 4TH 04:30
PROVIDERS: ADMIT Family Medicine; ATTEND Family Medicine
DX: R07.89 Other chest pain (principal); U07.1 COVID-19; I25.10 Atherosclerotic heart disease of native coronary artery without angina pectoris; I10 Essential (primary) hypertension; I48.20 Chronic atrial fibrillation, unspecified; I25.2 Old myocardial infarction; E11.9 Type 2 diabetes mellitus without complications; M25.522 Pain in left elbow; D64.9 Anemia, unspecified; K21.9 Gastro-esophageal reflux disease without esophagitis; M19.90 Unspecified osteoarthritis, unspecified site; E78.00 Pure hypercholesterolemia, unspecified; Z79.899 Other long term (current) drug therapy; Z79.01 Long term (current) use of anticoagulants; Z79.84 Long term (current) use of oral hypoglycemic drugs; Z79.82 Long term (current) use of aspirin; Z85.828 Personal history of other malignant neoplasm of skin; Z90.89 Acquired absence of other organs; Z95.1 Presence of aortocoronary bypass graft; Z83.3 Family history of diabetes mellitus
CPT/HCPCS: 36415; 71045; 80053; 82947; 83735; 83874; 84484; 85025; 85610; 85730; 93005; G0378

== ENCOUNTER → 2021-11-15 | Outpatient (CLI) | payer MEDICARE, OTHER ==
[~2021-11-15] MED LIST changes: +ACET-2267 PO; +APIX5TAB PO; +ASPI-1238 PO; +CETI10TA17 PO; +DEXA2TAB PO; +DILT-27 PO; +FAMO-144 PO; -FENO134C PO; +FENO134C21 PO; +FENO135C4 PO; +GLIP5TAB26 PO; +LOSA100T57 PO; +METF-399 PO; +MULT-1136 PO; +RT-ALBUINH IH
--- NOTE | 2021-11-15 11:56 | Diagnostic Imaging Report ---
Indication: Routine screening. Comparison is made with prior mammogram from 11/03/2020 and 11/03/2019. 2-D and 3-D bilateral screening mammography was performed with CAD. CAD is utilized. The current study was also evaluated with a Computer Aided Detection (CAD) system. Both breasts remain heterogeneously dense, limiting the sensitivity of mammography. Cardiac loop recorder overlies the medial left breast soft tissues. The parenchymal pattern is stable. No mass or malignant-appearing microcalcifications are seen. Axillae are unremarkable. IMPRESSION: BI-RADS Category 1 No mammographic features suspicious for malignancy are identified. ACR BI-RADS Category 1: Negative. Result letter will be mailed to the patient. Note: At least 10% of breast cancer is not imaged by mammography. Dictated by: Dictated on workstation # [id number]
== END ==
LOC: RAD 09:52
PROVIDERS: ATTEND Family Medicine
DX: Z12.31 Encounter for screening mammogram for malignant neoplasm of breast (principal)
CPT/HCPCS: 77063; 77067

== ENCOUNTER 2022-05-09 05:30 | Outpatient (CLI) | payer MEDICARE, OTHER ==
[~2022-05-09] VITALS: Ht 172.7 cm; Wt 78.2 kg
[~2022-05-09 05:30] MED LIST changes: +ALBU8.5H6 IH; -RT-ALBUINH IH
[2022-05-10] MEDS ORDERED: RIVA20TA PO (13:09)
[2022-05-10] MEDS ORDERED: ESCI-2 PO (13:09)
== END 2022-05-10 13:14 | disposition home or self-care (01) ==
LOC: PREOP 05:30
PROVIDERS: ATTEND Specialist
DX: Z01.818 Encounter for other preprocedural examination (principal)

== ENCOUNTER 2022-05-12 09:33 | Day surgery (SDC) | payer MEDICARE, OTHER ==
[~2022-05-12] VITALS: Ht 172.7 cm; Wt 78.2 kg
[~2022-05-12 09:33] MED LIST changes: +ESCI-2 PO; +RIVA20TA PO
[2022-05-12] MEDS ORDERED: MOXIFLOXACIN OPHTH SOLN 5 MG/ML 0.3 ML SYRINGE OP ONE (10:15)
[2022-05-12] MEDS ORDERED: TIMOLOL MALEATE 0.5% 5 ML (TIMOPTIC) BTL OU PRN (10:15)
[2022-05-12] MEDS ORDERED: POVIDONE (BETADINE) OPHTH SOLN 5% 30 ML OP ONE (10:15)
[2022-05-12] MEDS: TETRACAINE 0.5% OPHTH SOLN 4 ML BTL (SINGLE DOSE ONLY) OU PRN ×4 (10:23→10:39)
[2022-05-12] MEDS: TROPICAMIDE 1% OPH SOLN (MYDRIACYL) 15 ML BTL OP SCH ×3 (10:29→10:40)
[2022-05-12] MEDS: PHENYLEPHRINE 10% OPHTH (NEO-SYN) 5 ML BTL OU SCH ×3 (10:29→10:39)
[2022-05-12 10:32] VITALS: BP 179/83
[2022-05-12] MEDS ORDERED: MIDAZOLAM 2 MG/2 ML (VERSED) VIAL ONE (10:56)
--- NOTE | 2022-05-12 10:56 | Ophthalmologist Pre-Op Note ---
Pre-Operative Progress Note H&P Reviewed The H&P was reviewed, patient examined and no changes noted. Date H&P Reviewed: May 12, 2022 Time H&P Reviewed: 10:56 Pre-Op Dx Cataract, Left Eye KENYA SKINNER MD May 12, 2022 10:56
--- NOTE | 2022-05-12 11:17 | Ophthalmology Operative Report ---
Cataract removal/placement IOL PREOPERATIVE DIAGNOSIS: Cataract Left Eye POSTOPERATIVE DIAGNOSIS: Cataract Left Eye PROCEDURE: Cataract removal and placement of posterior chamber implant, left eye SURGEON: Sandeep Skinner ANESTHESIA: Topical with sedation COMPLICATIONS: None ESTIMATED BLOOD LOSS: Minimal DESCRIPTION OF PROCEDURE: After proper informed consent was obtained, the patient, a 71 female, was taken to the Operating Room and the left eye was anesthetized with tetracaine. The left eye was then prepped and draped in the usual manner. A wire lid speculum was placed. A paracentesis was made at the left hand position. Preservative free lidocaine was injected into the anterior chamber followed by viscoelastic. A clear corneal incision was made in the temporal position. A capsulorrhexis was preformed and the central nuclear and cortical material were removed. The posterior capsule was polished and an [place] 21.5 [id number] was placed into the capsular bag. The residual viscoelastic was aspirated and balanced saline solution was injected into the anterior chamber. Moxifloxacin was injected into the anterior chamber. The wound was checked and found to be water tight. The patient tolerated the procedure well without complications. SANDEEP SKINNER MD May 12, 2022 11:17
[2022-05-12 11:31] VITALS: BP 179/83
[2022-05-12] MEDS ORDERED: acetaZOLAMIDE ER 500 MG CAP (DIAMOX SEQUELS) PO ONE (12:15)
--- NOTE | 2022-05-12 14:10 | Anesthesia-General Post-Op ---
MAC Patient Condition Mental Status/LOC: Same as Preop Cardiovascular: Satisfactory Nausea/Vomiting: Absent Respiratory: Satisfactory Pain: Controlled Complications: Absent Post Op Complications Complications None Follow Up Care/Instructions Patient Instructions None needed. Anesthesiology Discharge Order Discharge Order Patient is doing well, no complaints, stable vital signs, no apparent adverse anesthesia problems. No complications reported per nursing. KAILA KNUTSON CRNA May 12, 2022 14:10
== END 2022-05-12 11:31 | disposition home or self-care (01) ==
LOC: SDC 09:33
PROVIDERS: ATTEND Specialist
DX: E11.36 Type 2 diabetes mellitus with diabetic cataract (principal); H25.9 Unspecified age-related cataract; Z95.1 Presence of aortocoronary bypass graft; Z79.84 Long term (current) use of oral hypoglycemic drugs
CPT/HCPCS: 66984; V2632

== ENCOUNTER → 2022-11-07 | Outpatient (CLI) | payer MEDICARE, OTHER ==
[~2022-11-07] MED LIST changes: +CLOP-31 PO; -CLOP75TA69 PO
--- NOTE | 2022-11-07 09:13 | Diagnostic Imaging Report ---
INDICATION: Routine screening. COMPARISON: 11/15/2021 and 11/03/2020. TECHNIQUE: 2D and 3D bilateral screening mammography was performed with CAD. FINDINGS: Both breasts are heterogeneously dense, limiting the sensitivity of mammography. A cardiac loop recorder overlies the medial left breast soft tissues. No mass or malignant-appearing microcalcifications are seen. Occasional vascular calcifications are noted. The axillae are unremarkable. IMPRESSION: No mammographic features suspicious for malignancy are identified. ACR BI-RADS Category 1: Negative. Result letter will be mailed to the patient. Note: At least 10% of breast cancer is not imaged by mammography. Dictated by: Dictated on workstation # [id number]
== END ==
LOC: RAD 07:36
PROVIDERS: ATTEND Family Medicine
DX: Z12.31 Encounter for screening mammogram for malignant neoplasm of breast (principal)
CPT/HCPCS: 77063; 77067

== ENCOUNTER 2023-04-13 16:20 | Emergency (ER) | payer MEDICARE, OTHER ==
[~2023-04-13] VITALS: Ht 172.7 cm; Wt 79.8 kg
[~2023-04-13 16:20] MED LIST changes: +FAMO-356 PO; -FAMO20TA3 PO; -LOSA100T57 PO; +LOSA100T58 PO
--- NOTE | 2023-04-13 16:42 | ED Cardiac General ---
History of Present Illness General Chief Complaint: Cardiac/General Problems Stated Complaint: HIGH BP Source: patient Exam Limitations: no limitations History of Present Illness Date Seen by Provider: Apr 13, 2023 Time Seen by Provider: 16:39 Initial Comments Patient is a 72-year-old female who presents ED for elevated blood pressure. She was following up with her primary care physician Dr. HANCOCK and found to have a blood pressure of 208/88. History of hypertension. Patient was following up regarding her A-fib. She denies of current symptoms such as heada mary carmen, dizziness, nausea, vomiting, visual changes, chest pain or shortness of breath. She states her blood pressure has been running high over the past few months. She states her blood pressure last week at Dr. Parra's office her finishing manager was 160/80. She does take carvedilol, Cardizem, doxazosin, losartan for her blood pressure. She does take Xarelto. She denies fever, chil ls, body aches, headache, dizziness, abdominal pain, vomiting or diarrhea, unilateral muscle weakness or sensory changes. She does report some mild congestion. Allergies and Home Medications Allergies Coded Allergies: Penicillins (Verified Allergy, Unknown, HIVES, 05/10/22) codeine (Verified Allergy, Unknown, 02/08/18) morphine (Unverified Allergy, Unknown, 02/08/18) Patient Home Medication List Home Medication List Reviewed: Yes Acetaminophen (Tylenol Extra Strength) 500 Mg Tablet, 500-1,000 MG PO Q8H PRN for PAIN-MILD (1-4), (Reported) Entered as Reported by: YARA SUAREZ on 07/20/21 0945 Aspirin (Aspirin EC) 81 Mg Tablet.dr, 81 MG PO HS, (Reported) Entered as Reported by: YARA SUAREZ on 07/20/21 0945 Atorvastatin Calcium (Atorvastatin Calcium) 40 Mg Tablet, 40 MG PO HS, (Reported) Entered as Reported by: CHELSIE PERRIN on 02/08/18 1107 Carvedilol (Carvedilol) 25 Mg Tablet, 25 MG PO BID, (Reported) Entered as Reported by: YARA SUAREZ on 07/20/21 0945 Cetirizine HCl (Cetirizine HCl) 10 Mg Tablet, 10 MG PO DAILY PRN for ALLERGY SYMPTOMS, (Reported) Entered as Reported by: YARA SUAREZ on 07/20/21944 Clonidine HCl (Clonidine HCl) 0.1 Mg Tablet, 0.1 MG PO BID Prescribed by: ROSELIA SHARMA on 04/13/231903 Dexamethasone (Dexamethasone) 2 Mg Tablet, 6 MG PO DAILY, (Reported) Entered as Reported by: YARA SUAREZ on 07/20/21944 Diltiazem HCl (Diltiazem 24Hr ER) 120 Mg Cap.er.24h, 120 MG PO DAILY, (Reported) Entered as Reported by: YARA SUAREZ on 07/20/21944 Escitalopram Oxalate (Escitalopram Oxalate) 10 Mg Tablet, 10 MG PO DAILY, (Reported) Entered as Reported by: RAGHAV HERNANDEZ on 05/10/22 1309 Famotidine (Acid Finished Cigar Maker (FAMOTIDINE)) 10 Mg Tablet, 10 MG PO HS, (Reported) Entered as Reported by: YARA SUAREZ on 07/20/21944 Fenofibric Acid (Choline) (Fenofibric Acid) 135 Mg Capsule.dr, 135 MG PO HS, (Reported) Entered as Reported by: YARA SUAREZ on 07/20/21944 Fish Oil/Borage/Flax/Om3,6,9#1 ([place] 3-6-9 1,200 mg Softgel) 1,200 Mg Capsule, 1 EA PO BID, (Reported) Entered as Reported by: CHELSIE PERRIN on 02/08/18 110 Glipizide (Glipizide ER) 5 Mg Tab.er.24, 5 MG PO DAILY, (Reported) Entered as Reported by: YARA SUAREZ on 07/20/21944 Isosorbide Mononitrate (Isosorbide Mononitrate ER) 30 Mg Tab.er.24h, 30 MG PO DAILY, (Reported) Entered as Reported by: CHELSIE PERRIN on 02/08/18 110 Losartan Potassium (Losartan Potassium) 100 Mg Tablet, 100 MG PO HS, (Reported) Entered as Reported by: YARA SUAREZ on 07/20/21 09 Metformin HCl (Metformin HCl) 1,000 Mg Tablet, 1,000 MG PO BID, (Reported) Entered as Reported by: YARA SUAREZ on 07/20/21 0945 Multivitamin (Multivitamin) 1 Each Tablet, 1 EACH PO DAILY, (Reported) Entered as Reported by: YARA SUAREZ on 07/20/21 0945 Rivaroxaban (Xarelto) 20 Mg Tablet, 20 MG PO DAILY, (Reported) Entered as Reported by: RAGHAV HERNANDEZ on 05/10/22 1309 Review of Systems Review of Systems Constitutional: No chills, No diaphoresis, No fever, No malaise, No weakness EENTM: No Double Vision, No Eye Pain Respiratory: Denies Cough, Denies Orthopnea Cardiovascular: Denies Chest Pain Gastrointestinal: Denies Abdominal Pain, Denies Diarrhea, Denies Nausea, Denies Vomiting Genitourinary: Denies Burning, Denies Discharge, Denies Drainage, Denies Frequency, Denies Flank Pain Musculoskeletal: No back pain, No joint pain, No joint swelling, No muscle pain, No muscle stiffness Skin: No change in color, No change in hair/nails Psychiatric/Neurological: Denies Anxiety, Denies Depressed, Denies Headache, Denies Numbness, Denies Paresthesia All Other Systems Reviewed Negative Unless Noted: Yes Past Gyajvew-Nujttn-Nbhvds Hx Patient Social History Tobacco Use?: No Smoking Status: Never a Smoker Smokeless Tobacco Frequency: Never a User Use of E-Cig and/or Vaping dev: No Use of E-Cig and/or Vaping Dustin: Never a User Substance use?: No Alcohol Use?: No Pt feels they are or have been: No Immunizations Up To Date Tetanus Booster (TDap): Unknown First/Initial COVID19 Vaccinat: Moderna Second COVID19 Vaccination Jean Paul: Moderna Seasonal Allergies Seasonal Allergies: Yes Past Medical History Surgery/Hospitalization HX: CABG 07, appy, choley, ortho surgery, loop recorder, afib Surgeries: Yes Adenoidectomy, Appendectomy, Cardiac, CABG, Gallbladder, Oophorectomy, Ortho pedic, Tonsillectomy Respiratory: No Currently Using CPAP: No Currently Using BIPAP: No Cardiac: Yes Coronary Artery Disease, Heart Attack, High Cholesterol, Hypertension Neurological: No Reproductive Disorders: No Female Reproductive Disorders: Denies, 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 Sexually Transmitted Disease: No HIV/AIDS: No Gastrointestinal: Yes Gastroesophageal Reflux, Hiatal Hernia Musculoskeletal: Yes Arthritis Endocrine: Yes Diabetes, Non-Insulin dep HEENT: No Loss of Vision: Bilateral Cancer: Yes Skin Did You Recieve Any Treatments: Yes What Type of Treatment Did You: Surgical Intervention Psychosocial: No Blood Disorders: Yes (HX LOW WBC, ANEMIA) Adverse Reaction/Blood Tranf: No (N/A) Family Medical History Chest pain 03 FATHER 09 BROTHER Congestive heart failure 03 FATHER Dementia 03 MOTHER Family history: Alzheimer's disease 03 MOTHER Family history: Cardiovascular disease 03 FATHER 09 BROTHER Family history: Diabetes mellitus 03 FATHER Family history: Hypertension 03 MOTHER Headache 03 FATHER 03 MOTHER 09 BROTHER 09 BROTHER Heart disease 03 FATHER 09 BROTHER History of - anemia 03 MOTHER Hypercholesterolemia 09 BROTHER Myocardial infarction 03 FATHER Parkinson's disease 03 MOTHER Psychotic disorder 03 MOTHER No Family History of: Abdominal aortic aneurysm [place]'s disease Alcoholism Aphasia Cancer Cancer of colon Cataract Congenital heart disease Cystic fibrosis Dysphagia Family history: Allergy Family history: Arthritis Family history: Asthma Family history: Breast disease Family history: Coronary thrombosis Family history: Gastrointestinal disease Family history: Glaucoma Family history: Osteoporosis Family history: Thyroid disorder Hearing loss Hereditary disease History of - disorder History of - respiratory disease History of drug abuse Human immunodeficiency virus (HIV) seropositivity Infertile Kidney disease Malignant neoplasm of lung Prostate cancer Seizure disorder Stroke Tuberculosis Visual impairment Physical Exam Vital Signs Vital Signs - First Documented 04/13/23 04/13/23 16:29 19:17 Temp 36.9 Pulse 65 Resp 17 B/P (MAP) 236/105 (148) Pulse Ox 99 O2 Delivery Room Air Capillary Refill : Less Than 3 Seconds Height, Weight, BMI Height: 5'9.00" Weight: 183lbs. 0.0oz. 83.069296gg; 27.22 BMI Method:Stated General Appearance: No Apparent Distress, WD/WN HEENT: PERRL/EOMI, TMs Normal, Normal ENT Inspection, Pharynx Normal Neck: Full Range of Motion, Normal Inspection, Non Tender, Supple Respiratory: Chest Non Tender, No Accessory Muscle Use, No Respiratory Distress Cardiovascular: Regular Rate, Rhythm, No Edema, No Gallop, No JVD Gastrointestinal: Normal Bowel Sounds, No Organomegaly, No Pulsatile Mass, Non Tender Extremity: Normal Capillary Refill, Normal Inspection, Normal Range of Motion, Non Tender Neurologic/Psychiatric: Alert, Oriented x3, No Motor/Sensory Deficits, Normal Mood/Affect, director of pediatric rehabilitation II-XII Norm as Tested Skin: Normal Color, Warm/Dry Progress/Results/Core Measures Results/Orders Lab Results Laboratory Tests Test 04/13/23 16:32 Range/Units White Blood Count 2.9 L 4.3-11.0 10^3/uL Red Blood Count 3.68 L 3.80-5.11 10^6/uL Hemoglobin 10.5 L 11.5-16.0 g/dL Hematocrit 32 L 35-52 % Mean Corpuscular Volume 87 80-99 fL Mean Corpuscular Hemoglobin 29 25-34 pg Mean Corpuscular Hemoglobin Concent 33 32-36 g/dL Red Cell Distribution Width 14.3 10.0-14.5 % Platelet Count 163 130-400 10^3/uL Mean Platelet Volume 10.4 9.0-12.2 fL Immature Granulocyte % (Auto) 0 % Neutrophils (%) (Auto) 56 42-75 % Lymphocytes (%) (Auto) 33 12-44 % Monocytes (%) (Auto) 8 0-12 % Eosinophils (%) (Auto) 2 0-10 % Basophils (%) (Auto) 1 0-10 % Neutrophils # (Auto) 1.6 L 1.8-7.8 10^3/uL Lymphocytes # (Auto) 1.0 1.0-4.0 10^3/uL Monocytes # (Auto) 0.2 0.0-1.0 10^3/uL Eosinophils # (Auto) 0.1 0.0-0.3 10^3/uL Basophils # (Auto) 0.0 0.0-0.1 10^3/uL Immature Granulocyte # (Auto) 0.0 0.0-0.1 10^3/uL Sodium Level 139 135-145 MMOL/L Potassium Level 3.8 3.6-5.0 MMOL/L Chloride Level 104 98-107 MMOL/L Carbon Dioxide Level 24 21-32 MMOL/L Anion Gap 11 5-14 MMOL/L Blood Urea Nitrogen 19 H 7-18 MG/DL Creatinine 1.11 0.60-1.30 MG/DL Estimat Glomerular Filtration Rate 53 BUN/Creatinine Ratio 17 Glucose Level 110 H 70-105 MG/DL Calcium Level 9.7 8.5-10.1 MG/DL Corrected Calcium 9.4 8.5-10.1 MG/DL Total Bilirubin 0.6 0.1-1.0 MG/DL Aspartate Amino Transf (AST/SGOT) 19 5-34 U/L Alanine Aminotransferase (ALT/SGPT) 17 0-55 U/L Alkaline Phosphatase 28 L 40-136 U/L Troponin I < 0.028 <0.028 NG/ML Total Protein 6.9 6.4-8.2 GM/DL Albumin 4.4 3.2-4.5 GM/DL My Orders Orders - MINDY KWAN Ekg Tracing (04/13/23 16:34) Troponin I Mono (04/13/23 16:37) Ekg Tracing (04/13/23 16:37) Cbc And Automated Diff (04/13/23 16:37) Comprehensive Metabolic Panel (04/13/23 16:37) Hydralazine Injection (Hydralazine Injec (04/13/23 16:45) Ed Iv/Invasive Line Start (04/13/23 16:48) Clonidine Tablet (Clonidine Tablet) (04/13/23 17:15) Labetalol Injection (Sdv) (Labetalol Inj (04/13/23 18:45) Clonidine Tablet (Clonidine Tablet) (04/13/23 19:15) Medications Given in ED Vital Signs/I&O 04/13/23 04/13/23 16:29 19:17 Temp 36.9 36.9 Pulse 65 71 Resp 17 16 B/P (MAP) 236/105 (148) 157/79 Pulse Ox 99 O2 Delivery Room Air Room Air Comment Sinus rhythm, nonspecific T wave normality, a 62 bpm, QRS duration 108 MS, QTc 411 MS Departure Communication (PCP) Reviewed previous ER visits, H&P, lab testing. History of malignant hypertension. She is currently on doxazosin, losartan, Cardizem carvedilol. History of A-fib. Patient was sent over by her primary care physician concern for an elevated blood pressure. She is currently asymptomatic. She has no current complaints. Patient blood pressure on arrival was 236/105. Obtain generalized lab work EKG troponin. CBC showed a white blood count of 2.9 hemoglobin of 10.5. She states she has a known history of low white blood coun t. After reviewing previous lab work she has had history of low white blood count in the past. Chemistry grossly unremarkable. EKG without evidence of arrhythmia, ST elevation or depression. Normal sinus rhythm. Troponin negative. No neurological red flag findings suggesting emergent CT scan of the head. Patient received a dose of hydralazine with slight improvement. She did receive 10 mg of labetalol with continue improvement. Provided a lower dose due to her heart rate being around 60s. Patient received a dose of clonidine 0.1 mg with improvement of blood pressure 157/79. She states her blood pressure typically runs in the 160s. She has been seen in the past for elevated blood pressure. Since patient is asymptomatic and improvement of blood pressure with treatment patient will be discharged. Did add on clonidine 0.1 mg to her regimen at this time. Attempted to contact cardiology Dr. Pichardo four different times but did not receive any phone call regarding her blood pressure. Since patient is asymptomatic patient will be discharged. No evidence suggesting endorgan damage. Suggest returning if blood pressure continues to remain high and or having any symptoms of headache chest pain short of breath visual changes, focal neural deficits. Follow-up your PCP on Sunday for reevaluation. Suggest following up with your finishing manager Dr. Garrison. She states there is talk about increasing her Cardizem Impression Primary Impression: Asymptomatic hypertension Disposition: HOME, SELF-CARE Condition: Stable Departure-Patient Inst. Decision time for Depature: 18:56 Referrals: MEENU HANCOCK DO (PCP/Family) Primary Care Physician Patient Instructions: High blood pressure in adults Scripts Clonidine HCl (Clonidine HCl) 0.1 Mg Tablet 0.1 MG PO BID, #16 TAB Prov: MINDY KWAN 04/13/23 MINDY KWAN Apr 13, 2023 16:42
[2023-04-13 16:45] LABS: BASOPHILS % (AUTO) 1 % (0-10); EOSINOPHILS # (AUTO) 0.1 10^3/uL (0.0-0.3); EOSINOPHILS % (AUTO) 2 % (0-10); HEMATOCRIT 32 % (35-52); HEMOGLOBIN 10.5 g/dL (11.5-16.0); LYMPHOCYTES % (AUTO) 33 % (12-44); MEAN CORPUSCULAR HEMOGLOBIN 29 pg (25-34); MEAN CORPUSCULAR HGB CONC 33 g/dL (32-36); MEAN CORPUSCULAR VOLUME 87 fL (80-99); MEAN PLATELET VOLUME 10.4 fL (9.0-12.2); MONOCYTES # (AUTO) 0.2 10^3/uL (0.0-1.0); MONOCYTES % (AUTO) 8 % (0-12); NEUTROPHILS # (AUTO) 1.6 10^3/uL (1.8-7.8); NEUTROPHILS % (AUTO) 56 % (42-75); PLATELET COUNT 163 10^3/uL (130-400); WHITE BLOOD COUNT 2.9 10^3/uL (4.3-11.0)
[2023-04-13] MEDS ORDERED: hydrALAZINE INJECTION 20 MG/ML VIAL IV ONE (16:45)
[2023-04-13 16:49] LABS: ALBUMIN 4.4 GM/DL (3.2-4.5); CHLORIDE 104 MMOL/L (98-107); POTASSIUM 3.8 MMOL/L (3.6-5.0); SODIUM 139 MMOL/L (135-145)
[2023-04-13 16:50] LABS: CALCIUM 9.7 MG/DL (8.5-10.1)
[2023-04-13 16:51] LABS: GLUCOSE 110 MG/DL (70-105)
[2023-04-13 16:52] LABS: TOTAL PROTEIN 6.9 GM/DL (6.4-8.2)
[2023-04-13 16:53] LABS: BILIRUBIN,TOTAL 0.6 MG/DL (0.1-1.0); CARBON DIOXIDE 24 MMOL/L (21-32)
[2023-04-13 16:55] LABS: ALKALINE PHOSPHATASE 28 U/L (40-136); CREATININE SERUM 1.11 MG/DL (0.60-1.30); GFR ESTIMATED 53
[2023-04-13 16:56] LABS: BUN/CREATININE RATIO 17
[2023-04-13 16:58] LABS: ALANINE AMINOTRANSFERASE 17 U/L (0-55)
[2023-04-13] MEDS ORDERED: cloNIDine 0.1 MG TABLET PO ONE ×2 (17:15→19:15)
[2023-04-13] MEDS ORDERED: LABETALOL 5 mg/ml 4 ML SINGLE DOSE SYRINGE IV ONE (18:45)
[2023-04-13] MEDS ORDERED: CLN.1T PO (19:04)
[2023-04-13 19:17] VITALS: BP 157/79
== END 2023-04-13 19:17 | disposition home or self-care (01) ==
LOC: EDUNIT# 16:20 → ER 16:22
DX: I10 Essential (primary) hypertension (principal); I48.91 Unspecified atrial fibrillation; Z79.899 Other long term (current) drug therapy; Z79.01 Long term (current) use of anticoagulants
CPT/HCPCS: 36415; 80053; 84484; 85025; 93005; 96374; 96375

== ENCOUNTER → 2023-05-01 | Outpatient (CLI) | payer MEDICARE, OTHER ==
[~2023-05-01] MED LIST changes: +CLN.1T PO; +HOLD METFORMIN - RECEIVED CONTRAST 20 ML VIAL IV SCH; +IOHEXOL 350 MG/ML 100 ML (OMNIPAQUE 350) VIAL IV ONE; +NS 100 ML (IVPB) BAG IV ONE
--- NOTE | 2023-05-01 14:47 | Diagnostic Imaging Report ---
INDICATION: Atrial fibrillation, pre-ablation workup. The patient also has a history of hypertension, coronary artery disease and hyperlipidemia. TECHNIQUE: After intravenous administration of contrast, thin section axial CT angiography of the chest was performed. 3D MIP reconstructions were made. All CT scans use one or more of the following dose optimizing techniques: automated exposure control, MA and/or KvP adjustment based on a patient size and exam type, or iterative reconstruction. COMPARISON: No prior studies are available for comparison. The left atrial appendage is unremarkable for thrombus or mass. There appear to be 2 pulmonary veins on the right and 2 pulmonary veins on the left. The right superior pulmonary vein ostia is approximate 18 mm. The right inferior pulmonary vein ostia is 17 mm. The left superior pulmonary vein ostia is 17 mm. The left inferior pulmonary vein ostia is 16 mm. No chamber mass is identified. There are postoperative changes from median sternotomy and CABG. There is no pericardial or pleural fluid detected. The visualized lung staley appear to be clear. IMPRESSION: CT angiogram of the chest pre-ablation workup, as described. Dictated by: Dictated on workstation # [id number]
== END ==
LOC: RAD 08:35
PROVIDERS: ATTEND Internal Medicine Cardiovascular Disease
DX: I48.0 Paroxysmal atrial fibrillation (principal); I25.10 Atherosclerotic heart disease of native coronary artery without angina pectoris; I10 Essential (primary) hypertension; E78.2 Mixed hyperlipidemia; Z95.818 Presence of other cardiac implants and grafts
CPT/HCPCS: 75572